=== PATIENT | male | born 1965 | race Caucasian/White ===

== ENCOUNTER 2024-08-16 17:59 | Inpatient (IN) | payer MEDICAID, SELFPAY ==
--- NOTE | 2024-08-16 18:05 | EKG_ITS ---
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
--- NOTE | 2024-08-16 18:05 | XR_ITS ---
Examination: CT brain head without contrast. 2-D sagittal coronal reconstructions Date and time of exam:August 16, 2024 1809 hours INDICATIONS: Stroke alert, onset focal neurologic deficit today CTDI: vol (mGy):53 DLP: (mGycm):1106 Technique: Multiple CT axial sections of the brain have been obtained, 5 mm slice thickness. Contrast has not been administered. 2-D sagittal, coronal reconstructions have been obtained Low dose protocols were performed. One or more of the following dose reduction techniques were used; automated exposure control, adjustment of the mA and/or KV according to patient size, use of iterative reconstruction technique. Findings: No significant ventricular enlargement. Intra-axial or extra-axial hemorrhage density is not seen. No mass effect or midline shift Basal cisterns are not remarkable. Fourth ventricle is midline. Cranial vault intact. Impression: Negative for acute hemorrhage, mass effect or midline shift
--- NOTE | 2024-08-16 18:05 | XR_ITS ---
Examination: CTA carotids with intravenous contrast CTA brain, head with intravenous contrast. 2-D sagittal, coronal reconstructions. 3-D reconstructions. Exam date and time: August 16, 2024 1812 hours INDICATIONS: Stroke alert, onset focal neurologic deficit today CTDI: vol (mGy) 12 DLP: (mGycm) 482 Technique: Multiple CTA axial brain, head carotid images post intravenous contrast injection 100 cc, Isovue-370. 2-D sagittal, coronal reconstructions. 3-D reconstructions, 3-D post processing including vascular maximum intensity projection images. Low dose protocols were performed. One or more of the following dose reduction techniques were used; automated exposure control, adjustment of the mA and/or KV according to patient size, use of iterative reconstruction technique. Findings: No significant common carotid carotid bifurcation or internal carotid artery stenoses Dominant left vertebral artery in the neck with no critical stenoses Intracranial vertebral arteries basilar artery posterior cerebral branches fill with no large vessel occlusions M1 segments middle cerebral arteries and middle cerebral artery trifurcation vessels and anterior cerebral arteries do not demonstrate occlusions or thrombus IMPRESSION: No significant neck arterial stenoses No cerebral large vessel arterial occlusions
--- NOTE | 2024-08-16 18:18 | EDNOTE_ITS ---
Neuro Symptoms Deficit-RME/HPI General Chief Complaint: Neuro Symptoms/Deficit Stated Complaint: FALL, L HIP PAIN. CONFUSION Time Seen by Provider: 08/16/24 18:14 Arrival date/time: 08/16/24 17:59 RME / HPI RME / HPI Narrative: DR MARCIAL MAIN ED EVALUATION: 58 y/o male BIBA c/o altered mental status and left upper extremity weakness onset during transport to ED. Patient initially called EMS due to left hip pain and LLE swelling s/p hip surgery performed by Dr. Iniguez at [facility]. Per EMS patient was GCS 15 when they arrived on scene. En route to hospital, patient was given Tylenol for pain, then suddenly appeared altered with repetitive questioning. Left upper extremity weakness noted on exam. LKWT at approximately 5:40 PM. On arrival patient appears confused and c/o left foot pain. Related Data Previous Rx's ?Medication ?Instructions ?Recorded aspirin 81 mg tablet,delayed 81 mg PO QDAY 1 month #30 tabs 08/20/24 release (Adult Aspirin Regimen) atorvastatin 40 mg tablet 40 mg PO QDAY 1 month #30 ta bs 08/20/24 lisinopril 40 mg tablet 40 mg PO QDAY 1 month #30 ta bs 08/20/24 Allergies Allergy/AdvReac Type Severity Reaction Status Date / Time No Known Drug Allergies Allergy Verified 09/19/23 13:11 Review of Systems Review of Systems Systems Reviewed: All systems reviewed, normal except as documented ED Exam Narrative Physical exam: GENERAL APPEARANCE: alert and oriented x 4, well-developed, well-nourished, no acute distress VITALS: All vitals were reviewed and the pulse ox is 99% on room air, which is normal according to my interpretation. HEENT: Normocephalic, atraumatic; pupils equal, round, reactive to light; EOMI; mucous membranes pink, moist; oropharynx clear NECK: Supple LUNGS: CTABL; no wheezes, no rales, no rhonchi HEART: Regular rate, regular rhythm; normal S1, S2; no murmurs ABDOMEN: non distended; normal BS; soft, no tenderness, no guarding, no rebound; no masses, no organomegaly, no hernia BACK: no CVA tenderness EXTREMITIES: atraumatic; left leg swelling, erythema, edema, edema to left foot, diffused tenderness, left hip nontender NEUROLOGIC: awake; alert and oriented x4; LUE rotator drift, Left hand weakness PSYCHIATRIC: appropriate mood and affect SKIN: warm, dry, normal color; no rashes left hip with well-healed surgical scar with no drainage, no erythema Course Quality Measures Suspected type of Stroke: Unknown at this time Last known well (date): 08/16/24 Last known well (time): 17:39 Tenecteplase given: Reason(s) TPA not given: Unable to determine eligibility not given stroke Orders Category Date Time Status Bedside Blood Glucose NOW Care 08/16/24 18:05 Completed COVID-19 Screening Questionnaire NOW Care 08/16/24 23:47 Completed Tool Repairer Bench NOW Care 08/16/24 18:05 Completed Continuous Pulse Oximetry NOW Care 08/16/24 18:05 Completed EKG (ED ONLY) *Do not use* NOW Care 08/16/24 18:05 Completed In and Out Catheter NEEDED Care 08/16/24 18:05 Completed Insert IV NOW Care 08/16/24 18:05 Completed NIH Stroke Scale now Care 08/16/24 18:05 Completed NPO NOW Care 08/16/24 18:05 Completed Neuro Check Q15MIN Care 08/16/24 18:06 Completed Nurse Swallow Screen x1 Care 08/16/24 18:05 Completed Consult to Neurology / Tele-Neurology Routine Cons 08/16/24 18:[address] angio stroke protocol Stat Exams 08/16/24 18:[address] stroke protocol Stat Exams 08/16/24 18:05 Completed EKG (ED Only) Stat Exams 08/16/24 18:05 Draft US venous doppler LE BI Stat Exams 08/16/24 20:08 Completed XR ankle comp LT min 3V Stat Exams 08/16/24 20:08 Completed XR foot comp LT min 3V Stat Exams 08/16/24 20:08 Completed B-Type Natriuretic Peptide Stat Lab 08/16/24 18:37 Completed Blood Culture (Lab) Stat Lab 08/16/24 20:51 Completed CBC Stat Lab 08/16/24 18:37 Completed Comprehensive Metabolic Panel Stat Lab 08/16/24 18:37 Completed Drug Screen,Urine Stat Lab 08/16/24 19:45 Completed Lactate (Lactic Acid) Stat Lab 08/16/24 20:47 Completed Magnesium Stat Lab 08/16/24 18:37 Completed Partial Thromboplastin Time Stat Lab 08/16/24 18:37 Completed Procalcitonin Stat Lab 08/16/24 20:47 Completed Prothrombin Time with INR Stat Lab 08/16/24 18:37 Completed Troponin I Stat Lab 08/16/24 18:37 Completed Urinalysis Stat Lab 08/16/24 19:45 Completed Urine Culture Stat Lab 08/16/24 19:45 Completed Ondansetron Inj [Zofran Inj] Med 08/16/24 18:05 Discontinued 4 mg IVP Q4HR PRN Sodium Chloride 0.9% 1000 ml [Ns] 1,000 ml Med 08/16/24 20:27 Discontinued IV 999 mls/hr cefTRIAXone/D5w 1gm IV premix [Rocephin/D5w 1gm IV Med 08/16/24 20:23 Discontinued premix] 1 gm in 50 ml IV X1 Oxygen Delivery NOW RT 08/16/24 18:05 Completed Vital Signs Vital signs: Vital Signs Pulse Rate 73 08/16/24 18:40 Respiratory Rate 19 08/16/24 18:40 Blood Pressure 131/86 H 08/16/24 18:40 Pulse Oximetry (%) 99 08/16/24 18:40 Oxygen Delivery Method Room Air 08/16/24 18:40 Neuro Symptoms / Deficit MDM Narrative MDM Narrative:: Scribe Attestation: Malia Carter, am scribing for and in the presence of Dr. Marcial. Provider Notation: Although this document has been carefully reviewed, there may still be some phonetic and other typographical errors. These errors are purely grammatical due to imperfections in the software program and should not be construed in any way to compromise the substance of the patient's medical care during this visit. Patient data External records reviewed:: [facility] previous records (No prior ED records available for review.) and EMS form Clinical information provided by:: patient and EMS Social determinants that could affect healthcare access:: none Patient has the following chronic illnesses:: None reported How is presenting disease/condition affected by chronic disease/condition?: no chronic disease Evaluation data The following diagnostics were reviewed and interpreted by me:: lab results, radiology exam(s) and EKG tracing(s) (1836: EKG manual reading, my interpretation: sinus rhythm, rate: 70 bpm,Mildly diffused flattening at ST segments, P-wave inversions at V1 and V3) Lab and/or radiology exams considered but not ordered:: None Interpretation Summary: RADIOLOGY Head CT: Patient: ALEXANDRA SMITH [facility]. Record#: [id number] Birthdate: 1965 Age/Sex: 58 / M Location: [facility] Attending Dr: Ordering Physician: Carlota Marcial MD Date of Service: 08/16/24 Procedure(s): CT stroke protocol Accession Number(s): [id number] cc: Papito Encarnacion MD; Carlota Marcial MD~ Examination: CT brain head without contrast. 2-D sagittal coronal reconstructions Date and time of exam:August 16, 2024 1809 hours INDICATIONS: Stroke alert, onset focal neurologic deficit today CTDI: vol (mGy):53 DLP: (mGycm):1106 Technique: Multiple CT axial sections of the brain have been obtained, 5 mm slice thickness. Contrast has not been administered. 2-D sagittal, coronal reconstructions have been obtained Low dose protocols were performed. One or more of the following dose reduction techniques were used; automated exposure control, adjustment of the mA and/or KV according to patient size, use of iterative reconstruction technique. Findings: No significant ventricular enlargement. Intra-axial or extra-axial hemorrhage density is not seen. No mass effect or midline shift Basal cisterns are not remarkable. Fourth ventricle is midline. Cranial vault intact. Impression: Negative for acute hemorrhage, mass effect or midline shift Head/Neck CTA: Patient: ALEXANDRA SMITH [facility]. Record#: [id number] Birthdate: 1965 Age/Sex: 58 / M Location: [facility] Attending Dr: Ordering Physician: Carlota Marcial MD Date of Service: 08/16/24 Procedure(s): CT angio stroke protocol Accession Number(s): [id number] cc: Papito Encarnacion MD; Carlota Marcial MD~ Examination: CTA carotids with intravenous contrast CTA brain, head with intravenous contrast. 2-D sagittal, coronal reconstructions. 3-D reconstructions. Exam date and time: August 16, 2024 1812 hours INDICATIONS: Stroke alert, onset focal neurologic deficit today CTDI: vol (mGy) 12 DLP: (mGycm) 482 Technique: Multiple CTA axial brain, head carotid images post intravenous contrast injection 100 cc, Isovue-370. 2-D sagittal, coronal reconstructions. 3-D reconstructions, 3-D post processing including vascular maximum intensity projection images. Low dose protocols were performed. One or more of the following dose reduction techniques were used; automated exposure control, adjustment of the mA and/or KV according to patient size, use of iterative reconstruction technique. Findings: No significant common carotid carotid bifurcation or internal carotid artery stenoses Dominant left vertebral artery in the neck with no critical stenoses Intracranial vertebral arteries basilar artery posterior cerebral branches fill with no large vessel occlusions M1 segments middle cerebral arteries and middle cerebral artery trifurcation vessels and anterior cerebral arteries do not demonstrate occlusions or thrombus IMPRESSION: No significant neck arterial stenoses No cerebral large vessel arterial occlusions Left Foot X-Ray: Patient: ALEXANDRA SMITH. Record#: [id number] Birthdate: 1965 Age/Sex: 58 / M Location: [facility] Attending Dr: Ordering Physician: Carlota Marcial MD Date of Service: 08/16/24 Procedure(s): XR foot comp LT min 3V Accession Number(s): [id number] cc: Papito Encarnacion MD; NO PRIMARY/FAMILY,PHYSICIAN; Carlota Marcial MD~ Examination: Foot, left, 3 views Technique: AP, oblique, lateral views foot, 3 views Date and time of exam: 2036 hours INDICATIONS: Patient fell today with injury to foot, foot pain FINDINGS: No acute fracture No dislocation No foreign body IMPRESSION: No acute fracture Soft tissue swelling dorsum of the foot Dictated By: Papito Encarnacion MD Signed By: <Electronically signed by Papito Encarnacion MD in OV> 08/16/242146 Left Ankle X-Ray: Patient: ALEXANDRA SMITH [facility]. Record#: [id number] Birthdate: 1965 Age/Sex: 58 / M Location: [facility] Attending Dr: Ordering Physician: Carlota Marcial MD Date of Service: 08/16/24 Procedure(s): XR ankle comp LT min 3V Accession Number(s): [id number] cc: Papito Encarnacion MD; NO PRIMARY/FAMILY,PHYSICIAN; Carlota Marcial MD~ EXAMINATION: Ankle, left 3 views . Technique: Ankle AP, oblique, lateral 3 views Date and time of exam: August 09 2040 hours INDICATIONS: Patient fell today with injury to the ankle, ankle pain. FINDINGS: No fracture or dislocation Moderate osteoarthritis tibiotalar joint IMPRESSION: No fracture or dislocation Dictated By: Papito Encarnacion MD Signed By: <Electronically signed by Papito Encarnacion MD in OV> 08/16/242146 Venous Doppler US LE: Patient: ALEXANDRA SMITH [facility]. Record#: [id number] Birthdate: 1965 Age/Sex: 58 / M Location: [facility] Attending Dr: Ordering Physician: Carlota Marcial MD Date of Service: 08/16/24 Procedure(s): US venous doppler LE BI Accession Number(s): [id number] cc: Papito Encarnacion MD; NO PRIMARY/FAMILY,PHYSICIAN; Carlota Marcial MD~ Examination: Venous duplex lower extremity sonogram, bilateral. Date and time of exam: August 16, 2024 1054 hours INDICATIONS: Leg swelling and pain today Technique: Multiple sonographic images of the deep venous system have been obtained. B-mode/2-D grayscale imaging of vascular structures and Doppler spectral analysis (waveforms) and color performed Both legs are examined. Findings: Deep venous systems do not demonstrate abnormal echogenicity. All visualized deep veins exhibit compressibility. All visualized deep veins exhibit augmentation. Impression: Negative for deep vein thrombosis Dictated By: Papito Encarnacion MD Signed By: <Electronically signed by Papito Encarnacion MD in OV> 08/16/24 2356 Medications / Prescriptions Medications or Prescriptions considered but not ordered:: None Medication administrations:: Medication Administration History Discontinued Medications Acetaminophen (Acetaminophen 325 Mg Tablet) 650 mg PO Q6H PRN PRN Reason: Fever >101.5 Stop: 09/16/24 00:29 Acetaminophen (Acetaminophen 325 Mg Tablet) 650 mg PO Q6H PRN PRN Reason: PAIN SCALE 1-3 (mild Stop: 09/16/24 00:29 Last Admin: 08/19/24 17:58 Dose: 650 mg Documented By: Admin: 08/19/24 07:29 Dose: 650 mg Documented By: Admin: 08/18/24 19:25 Dose: 650 mg Documented By: LATRICE Hydrocodone Bitart/Acetaminophen (Hydrocodone/Apap 5/325 Tablet) 1 tab PO Q4HR PRN PRN Reason: PAIN SCALE 4-6 (Moderate Stop: 08/22/24 00:29 Amlodipine Besylate (Amlodipine Besylate 5 Mg Tablet) 5 mg PO QDAY COUNT INCLUDES THE [facility] Stop: 09/17/24 07:29 Last Admin: 08/18/24 08:36 Dose: Not Given Documented By: ZP Non-Admin Reason: Per MD hold dose. x1 order given at 07:44. Admin: 08/18/24 07:44 Dose: 5 mg Documented By: COY Aspirin (Aspirin Ec 81 Mg Tabec) 81 mg PO QDAY COUNT INCLUDES THE [facility] Stop: 09/16/24 08:59 Last Admin: 08/20/24 09:05 Dose: 81 mg Documented By: Admin: 08/19/24 08:23 Dose: 81 mg Documented By: Admin: 08/18/24 08:01 Dose: 81 mg Documented By: Admin: 08/17/24 09:03 Dose: 81 mg Documented By: COY Atorvastatin Calcium (Atorvastatin Calcium 20 Mg Tablet) 40 mg PO HS COUNT INCLUDES THE [facility] Stop: 09/16/24 20:59 Last Admin: 08/19/24 20:42 Dose: 40 mg Documented By: Admin: 08/18/24 20:35 Dose: 40 mg Documented By: Admin: 08/17/24 21:13 Dose: 40 mg Documented By: ANGELICA Doxycycline Hyclate (Doxycycline 100 Mg Tablet) 100 mg PO BID COUNT INCLUDES THE [facility] Stop: 08/24/24 08:59 Last Admin: 08/18/24 08:01 Dose: 100 mg Documented By: Admin: 08/17/24 21:13 Dose: 100 mg Documented By: Admin: 08/17/24 09:03 Dose: 100 mg Documented By: COY Heparin Sodium (Porcine) (Heparin Sod Inj 5000 Unit/Ml Vial) 5,000 unit SC BID ANNIA Stop: 08/31/24 00:44 Last Admin: 08/20/24 09:05 Dose: 5,000 unit Documented By: NURIA Co-signed By: MM Admin: 08/19/24 20:45 Dose: 5,000 unit Documented By: JANE Co-signed By: ARNOLD Admin: 08/19/24 08:24 Dose: 5,000 unit Documented By: COY Co-signed By: aneudy Admin: 08/18/24 20:35 Dose: 5,000 unit Documented By: LATRICE Co-signed By: ARNOLD Admin: 08/18/24 08:01 Dose: 5,000 unit Documented By: COY Co-signed By: Admin: 08/17/24 21:13 Dose: 5,000 unit Documented By: ANGELICA Co-signed By: LATRICE Admin: 08/17/24 09:03 Dose: 5,000 unit Documented By: COY Co-signed By: Admin: 08/17/24 01:17 Dose: 5,000 unit Documented By: MAGGI Co-signed By: TANVI Hydralazine HCl (Hydralazine Inj 20 Mg/Ml Vial) 10 mg IVP X1 ONE Stop: 08/18/24 07:29 Last Admin: 08/18/24 07:43 Dose: 10 mg Documented By: COY Hydralazine HCl (Hydralazine Inj 20 Mg/Ml Vial) 20 mg IVP X1 ONE Stop: 08/18/24 16:04 Last Admin: 08/18/24 16:25 Dose: 20 mg Documented By: DA Hydralazine HCl (Hydralazine Inj 20 Mg/Ml Vial) 20 mg IVP X1 ONE Stop: 08/19/24 11:46 Last Admin: 08/19/24 11:55 Dose: Not Given Documented By: COY Non-Admin Reason: Order cancelled Hydralazine HCl (Hydralazine Inj 20 Mg/Ml Vial) 10 mg IVP X1 ONE Stop: 08/19/24 11:55 Last Admin: 08/19/24 11:56 Dose: 10 mg Documented By: COY Hydralazine HCl (Hydralazine Inj 20 Mg/Ml Vial) 10 mg IVP X1 ONE Stop: 08/19/24 15:27 Last Admin: 08/19/24 15:37 Dose: Not Given Documented By: COY Non-Admin Reason: Don't give per MD. Hydralazine HCl (Hydralazine Inj 20 Mg/Ml Vial) 10 mg IVP X1 PRN PRN Reason: SBP >170 Stop: 09/18/24 15:34 Last Admin: 08/19/24 16:21 Dose: 10 mg Documented By: COY Ceftriaxone Sodium/Dextrose (Rocephin/D5w 1gm Iv Premix) 1 gm in 50 mls @ 100 mls/hr IV X1 ONE Stop: 08/16/24 20:52 Last Infusion: 08/16/24 21:23 Dose: Infused Documented By: Admin: 08/16/24 20:50 Dose: 100 mls/hr Documented By: CVL Sodium Chloride (Ns) 1,000 mls @ 999 mls/hr IV .Q1H1M ONE Stop: 08/16/24 21:27 Last Infusion: 08/16/24 21:42 Dose: Infused Documented By: Admin: 08/16/24 20:34 Dose: 999 mls/hr Documented By: CVL Cefazolin Sodium (Ancef 2gm Ivpb) 2 gm in 100 mls @ 100 mls/hr IV Q8HR ANNIA Stop: 08/24/24 00:44 Last Admin: 08/18/24 05:25 Dose: 100 mls/hr Documented By: Infusion: 08/17/24 22:13 Dose: Infused Documented By: Admin: 08/17/24 21:13 Dose: 100 mls/hr Documented By: Infusion: 08/17/24 14:24 Dose: Infused Documented By: Admin: 08/17/24 13:24 Dose: 100 mls/hr Documented By: Infusion: 08/17/24 07:25 Dose: Infused Documented By: Admin: 08/17/24 06:25 Dose: 100 mls/hr Documented By: Infusion: 08/17/24 02:25 Dose: Infused Documented By: Admin: 08/17/24 01:20 Dose: 100 mls/hr Documented By: CVL Potassium Chloride (Kcl Ivpb) 10 meq in 100 mls @ 100 mls/hr IV Q1H ANNIA Stop: 08/17/24 12:23 Last Admin: 08/17/24 09:15 Dose: Not Given Documented By: ZP Non-Admin Reason: Discontinued Lisinopril (Lisinopril 20 Mg Tablet) 20 mg PO QDAY COUNT INCLUDES THE [facility] Stop: 09/17/24 11:14 Last Admin: 08/18/24 11:08 Dose: 20 mg Documented By: COY Lisinopril (Lisinopril 20 Mg Tablet) 40 mg PO QDAY COUNT INCLUDES THE [facility] Stop: 09/18/24 08:59 Last Admin: 08/20/24 09:05 Dose: 40 mg Documented By: Admin: 08/19/24 08:23 Dose: 40 mg Documented By: COY Lorazepam (Lorazepam 2 Mg/Ml Vial) 0.5 mg IVP X1 ONE Stop: 08/19/24 10:24 Last Admin: 08/19/24 11:07 Dose: Not Given Documented By: ToniP Non-Admin Reason: Patient Refused Morphine Sulfate (Morphine Sulf Inj 10 Mg/Ml Vial) 1 mg IVP Q4H PRN PRN Reason: PAIN SCALE 7-10 (Severe Stop: 08/22/24 00:29 Nifedipine (Nifedipine Xl 30 Mg Tabcr) 30 mg PO QDAY ANNIA Stop: 09/18/24 12:59 Last Admin: 08/20/24 09:08 Dose: 30 mg Documented By: Admin: 08/19/24 12:36 Dose: 30 mg Documented By: COY Nitrofurantoin Macrocrystals (Nitrofurantoin Macro 100 Mg Capsule) 100 mg PO BID ANNIA Stop: 08/26/24 20:59 Last Admin: 08/20/24 09:07 Dose: 100 mg Documented By: Admin: 08/19/24 20:45 Dose: 100 mg Documented By: CLT Ondansetron HCl (Ondansetron Inj 2 Mg/Ml Inj 2 Ml) 4 mg IVP Q4HR PRN PRN Reason: NAUSEA OR VOMITING Stop: 09/15/24 18:04 Ondansetron HCl (Ondansetron Inj 2 Mg/Ml Inj 2 Ml) 4 mg IVP Q6HR PRN; Protocol PRN Reason: NAUSEA OR VOMITING Stop: 09/16/24 06:08 Pantoprazole Sodium (Pantoprazole 40 Mg Tablet) 40 mg PO QDAY ANNIA Stop: 09/16/24 08:59 Last Admin: 08/20/24 09:09 Dose: 40 mg Documented By: Admin: 08/19/24 08:23 Dose: 40 mg Documented By: ToniP Admin: 08/18/24 08:01 Dose: 40 mg Documented By: ToniP Admin: 08/17/24 09:03 Dose: 40 mg Documented By: COY Potassium Chloride (Potassium Chloride 20 Meq Tabcr) 40 meq PO X1 ONE Stop: 08/17/24 09:11 Last Admin: 08/17/24 09:17 Dose: 40 meq Documented By: COY Potassium Chloride (Potassium Chloride 20 Meq Tabcr) 20 meq PO X1 ONE Stop: 08/19/24 07:47 Last Admin: 08/19/24 08:27 Dose: 20 meq Documented By: COY Sennosides (Senna Tablet) 1 tab PO QDAY PRN; Protocol PRN Reason: constipation Stop: 09/16/24 00:29 See above Consultations Consultation(s) initiated? (list below): Yes Consultation #1 (Physician, Specialty, Details): Discussed with teleneurologist for consult. Reviewed the patient?s HPI, PMHx, lab and/or radiology results. Treatment plan was discussed. Time: 18:35 Consultation #2 (Physician, Specialty, Details): Discussed with Dr. Malone for admission. Reviewed the patient?s HPI, PMHx, lab and/or radiology results. Discussed treatment plan. Will consult an admission to the hospitalist. Time: 23:32 Diagnosis Neuro Differential Diagnosis: carpal tunnel syndrome, convulsions, delirium, peripheral neuropathy, cerebrovascular accident, multiple sclerosis, transient cerebral ischemia and other (Sepsis, Cellulitis, Peripheral edema) Most likely diagnosis given after review of the tests above:: Cellulitis, Left-sided weakness, Left foot pain Admission Indicated Admission indicated?: indicated Explain why admission is indicated or not indicated:: Cellulitis, Left-sided weakness, Left foot pain Admission Request Was there a request for admission?: Yes Admission Attestation Admission request attestation: Discussed case with [] from Hospitalist service regarding admission. Discussed patients ED course, exam findings, labs, and radiology results. The Hospitalist [agrees,declines] to accept the patient for admission. Disposition Plan Disposition Plan: Admit Discharge Plan Plan Patient Disposition: Admit Acute Care w/in Hospital Discharge Disposition comment: TELE Patient condition on transfer: Stable Problem List Clinical Impression: Cellulitis, Left-sided weakness, Left foot pain
[2024-08-16 18:40] VITALS: BP 131/86; PULSE 73; RESP 19; O2SAT 99
[2024-08-16 18:41] VITALS: PULSE 78; RESP 96; O2SAT 95; BMI 35.4
[2024-08-16 18:51] LABS: Basophils # (Auto) 0.0 Thou/mm3 (0.0-0.2); Basophils % (Auto) 1 % (0-2.5); Eosinophils # (Auto) 0.1 Thou/mm3 (0.0-0.5); Eosinophils % (Auto) 2 % (0-10); Hematocrit 34.8 % (41.0-53.0); Hemoglobin 11.7 g/dL (13.5-16.0); Immature Granulocytes Auto 0.03 Thou/mm3 (0.00-0.00); Lymphocytes # (Auto) 1.7 Thou/mm3 (1.0-4.8); Lymphocytes % (Auto) 31 % (10-50); Mean Corpuscular HGB Conc 33.6 g/dl (31.0-37.0); Mean Corpuscular Hemoglobin 32.5 pg (25.0-35.0); Mean Corpuscular Volume 97 fL (80-100); Monocytes # (Auto) 0.8 Thou/mm3 (0.0-0.8); Monocytes % (Auto) 15 % (0-12); Neutrophils # (Auto) 2.8 Thou/mm3 (1.8-7.7); Neutrophils % (Auto) 50 % (37-80); Nucleated Red Blood Cell # 0.00 Thou/mm3 (0.00-0.00); Nucleated Red Blood Cell % 0 /100 WBC (0); Platelet Count 237 Thou/mm3 (140-440); RDW Standard Deviation 50.4 fL (35.1-43.9); Red Blood Count 3.60 Miln/mm3 (4.50-5.90); White Blood Count 5.6 Thou/mm3 (3.8-10.6)
[2024-08-16 19:00] LABS: INR 1.1 (0.9-1.3); Partial Thromboplastin Time 25.9 Seconds (22.0-36.0); Prothrombin Time 11.8 Seconds (9.0-12.2)
[2024-08-16 19:04] LABS: B-Type Natriuretic Peptide 113 pg/mL (0-100)
[2024-08-16 19:17] LABS: Alanine Aminotransferase 10 U/L (10-49); Albumin, Serum 3.9 gm/dL (3.5-5.0); Albumin/Globulin Ratio 1.3 (1.2-2.2); Alkaline Phosphatase 105 U/L (46-116); Anion Gap 8 (7-16); Aspartate Amino Transferase 17 U/L (0-34); BUN/Creatinine Ratio 18 Ratio (12-20); Bilirubin,Total 0.3 mg/dL (0.3-1.2); Blood Urea Nitrogen 22 mg/dL (9-23); Calcium 8.7 mg/dL (8.3-10.6); Calcium (Corrected) 8.8 mg/dL (8.5-10.1); Carbon Dioxide 24.9 mMol/L (20.0-31.0); Chloride 112 mMol/L (98-107); Creatinine (Component) 1.2 mg/dL (0.6-1.3); Estimated Creatinine Clearance 81.6 mL/min (>60); Globulin 3.0 gm/dL (2.3-3.5); Glucose 131 mg/dL (74-106); Magnesium 2.2 mg/dL (1.6-2.6); Osmolality,Calculated 294 (275-295); Potassium 3.5 mMol/L (3.4-5.1); Sodium 145 mMol/L (136-145); Total Protein 6.9 gm/dL (5.7-8.2); Troponin I < 0.020 ng/mL (0.0-0.045); eGFR > 60 See Note
--- NOTE | 2024-08-16 19:19 | PC.NURSE ---
HAND OFF REPORT GIVEN TO YASMIN GARBER. PER EMS PATIENT LAST KNOWN WELL TIME WAS ACTUALLY 1740. WHEN PATIENT WAS PICKED UP FROM SCENE HE WAS GCS 15, ON ROUTE TO HOSPITAL PATIENT BECAME ALTERED AND BECAME [facility]CS 14. PATIENT HAD LEFT ARM DRIFT. PATIENT VITALS ARE STABLE. PATIENT PASSED NURSE SWALLOW EVAL. DR. MONROY WAS MADE AWARE OF EMS REPORT AND PATIENT HISTORY. MADE YASMIN GARBER AWARE OF EMS REPORT AND THAT THERE HAS NOT BEEN A CALL BACK FROM DR. MEREDITH TELE-NEUROLOGIST.
--- NOTE | 2024-08-16 19:33 | PC.NURSE ---
pt wanting to get cleaned up. pt was dry and clean but offered wipes to wipe himself down. water given to pt per RN ok.
[2024-08-16 20:00] VITALS: BP 149/92; PULSE 69; RESP 18; TEMP 37.2; O2SAT 99
--- NOTE | 2024-08-16 20:08 | XR_ITS ---
EXAMINATION: Ankle, left 3 views . Technique: Ankle AP, oblique, lateral 3 views Date and time of exam: August 090 hours INDICATIONS: Patient fell today with injury to the ankle, ankle pain. FINDINGS: No fracture or dislocation Moderate osteoarthritis tibiotalar joint IMPRESSION: No fracture or dislocation
--- NOTE | 2024-08-16 20:08 | XR_ITS ---
Examination: Foot, left, 3 views Technique: AP, oblique, lateral views foot, 3 views Date and time of exam: 2036 INDICATIONS: Patient fell today with injury to foot, foot pain FINDINGS: No acute fracture No dislocation No foreign body IMPRESSION: No acute fracture Soft tissue swelling dorsum of the foot
--- NOTE | 2024-08-16 20:08 | XR_ITS ---
Examination: Venous duplex lower extremity sonogram, bilateral. Date and time of exam: August 16, 2024 1054 hours INDICATIONS: Leg swelling and pain today Technique: Multiple sonographic images of the deep venous system have been obtained. B-mode/2-D grayscale imaging of vascular structures and Doppler spectral analysis (waveforms) and color performed Both legs are examined. Findings: Deep venous systems do not demonstrate abnormal echogenicity. All visualized deep veins exhibit compressibility. All visualized deep veins exhibit augmentation. Impression: Negative for deep vein thrombosis
[2024-08-16 20:10] LABS: Collection Type, Urine Catheter; Squamous Epithelial Cell,Urine 0 /hpf (0-5)
[2024-08-16 20:18] LABS: Bilirubin,Urine Negative (Negative); Blood,Urine Negative (Negative); Clarity,Urine Clear (Clear/Hazy); Color,Urine Yellow (Lt Yel-Yel); Glucose, Urine Negative (Negative); Ketones,Urine Negative (Negative); Leukocyte Esterase,Urine Negative (Negative); Nitrite,Urine Negative (Negative); PH,Urine 6.0 (5.0-7.0); Protein,Urine 1+ (Neg - Trace); RBC,Urine 3 /hpf (0-3); Specific Gravity,Urine 1.047 (1.001-1.035); Urobilinogen,Urine Negative mg/dL (0.0-1.0); WBC,Urine 1 /hpf (0-5)
[2024-08-16 20:29] LABS: Amphetamine/Methamp Scrn,U Negative (Negative); Barbiturate Screen,Urine Negative (Negative); Benzodiazepines Screen,Urine Negative (Negative); Benzoylecgonine Screen, Ur Negative (Negative); Fentanyl Screen,Urine Negative (Negative); Opiate Screen,Urine Negative (Negative); THC Screen,Urine Negative (Negative)
[2024-08-16] MEDS: SODIUM CHLORIDE 0.9% 1000 ML 1,000 ML 999 ML IV (20:34)
[2024-08-16] MEDS: cefTRIAXone/D5w 1gm IV premix 1 GM/50 ML BAG IV (20:50)
[2024-08-16 20:56] LABS: Lactate (Lactic Acid) 1.7 mMol/L (0.4-2.0)
[2024-08-16 21:23] LABS: Procalcitonin 0.09 ng/ml (0.0-0.49)
[2024-08-16 23:39] VITALS: BP 165/87; PULSE 66; RESP 18; TEMP 37.2; O2SAT 97
[2024-08-17] VITALS (11 sets, daily range): BP systolic 156–187; BP diastolic 80–97; PULSE 54–81; RESP 10–97; TEMP 36.2–36.9; O2SAT 97–99
--- NOTE | 2024-08-17 00:49 | ESHP_ITS ---
Documentation for date of: 08/17/24 HPI History of Present Illness Chief complaint: Left foot pain and swelling History of present illness: This patient is a 58-year-old male with past medical history of hypertension, hypercholesterolemia presented to the ED on 08/16/2024 with chief complaint of altered mental status and left upper extremity weakness. Per ED physician, patient had altered mental status and left upper extremity weakness onset during transport to ED. he initially called EMS due to left foot pain and LLE swelling s/p hip surgery performed by Dr. Iniguez at [facility]. He had a GCS of 15 on arrival to the scene. En route to hospital, patient was given Tylenol for pain, then suddenly appeared altered with repetitive questioning. Left upper extremity weakness and pronator drift noted on exam. Patient's last well-known time was at 5:40 PM. He was found confused with left foot pain on arrival. However after few minutes patient is back to his baseline with GCS 15. He reported that he had Left hip pain and swelling that started a week ago. He noticed that he started having pain and swelling which has been getting worse and from last 1 week. Pain is rated as 9 on 10 mainly in the left foot. Patient lives with his mom. He denied any fever chills, shortness of breath, chest pain, dysuria or any other complaint. Stroke workup was initiated by the ED physician including head CT and head and neck CTA which showed no acute changes. Patient did not had any episodes of jerky movements or seizures. Patient does not have purulent discharge or redness but has significant swelling and pain in his left foot. Initial plan was to discharge the patient however due to change in his mentation and possible concern for TIA/stroke patient will be admitted for further workup. In the ED, patient was hypertensive blood pressure 165/87, heart rate 66, afebrile. He was saturating well on room air. Labs were significant for normocytic anemia hemoglobin 11.7. White count stable. INR 1.1. Electrolytes showed sodium 145, potassium 3.5, chloride 112. BUN 22 and creatinine 1.2. Blood glucose 131. Lactic acid 1.7. Magnesium 2.1. BNP 113. Procalcitonin 0.09. Urinalysis showed specific gravity 1.047, proteinuria. U tox was negative. Venous Doppler was negative. Foot x-ray showed mild swelling and soft tissue. Ankle x-ray was negative for fracture. EKG showed sinus rhythm with QTc 483. Head CT was negative for acute changes. Head and neck CT showed no significant neck arterial stenosis. PMH: As above PSH: Left hip replacement a month ago, carpal tunnel release, ankle ligament surgery SH: Former smoker quit smoking a month ago. Used to smoke 1 to 2 cigarettes once or twice a week. Drinks alcohol socially. Last drink on Monday. Quit methamphetamine in January 2024. Allergies: NKDA Home medications: Lipitor Patient is admitted for further workup and management of possible TIA/stroke and left foot cellulitis. Review of Systems Review of Systems Systems Reviewed: All systems reviewed, normal except as documented Past Medical History Past Medical History CARDIAC: Positive Hypercholesterolemia and Hypertension Exam Vital Signs Temp Pulse Resp BP Pulse Ox O2 Del Method 99.0 F 66 18 165/87 H 97 Room Air 08/16/24 23:39 08/16/24 23:39 08/16/24 23:39 08/16/24 23:39 08/16/24 23:39 08/16/24 23:39 Narrative Exam GENERAL APPEARANCE: AxOx4, generally well-appearing male in no acute distress. HEENT: NC, AT. MMM. EOMI, clear conjunctiva, oropharynx clear. NECK: Supple without lymphadenopathy. No stiffness or restricted ROM. HEART: Regular rate and regular rhythm, normal S1/S2, no m/r/g LUNGS: CTAB, moving air well. No crackles or wheezes are heard. ABDOMEN: Soft, nontender, nondistended with good bowel sounds heard. BACK: No CVAT, no obvious deformity. EXTREMITIES: Left foot swelling without any purulent discharge or erythema NEUROLOGICAL: Grossly nonfocal. Alert and oriented, moving all 4 extremities. CN not formally tested but appear grossly intact. Skin: Warm and dry without any rash. Psych: appropriate mood and affect Results: Labs 08/16/24 18:37 08/16/24 18:37 Labs: Short CBC 08/16/24 Range/Units 18:37 WBC 5.6 (3.8-10.6) Thou/mm3 Hgb 11.7 L (13.5-16.0) g/dL Hct 34.8 L (41.0-53.0) % Plt Count 237 (140-440) Thou/mm3 BMP 08/16/24 18:37 Sodium 145 Potassium 3.5 Chloride 112 H Carbon Dioxide 24.9 BUN 22 Creatinine 1.2 Glucose 131 H Calcium 8.7 Cardiac Enzymes 08/16/24 Range/Units 18:37 Troponin I < 0.020 (0.0-0.045) ng/mL Liver Function 08/16/24 Range/Units 18:37 Total Bilirubin 0.3 (0.3-1.2) mg/dL AST 17 (0-34) U/L ALT 10 (10-49) U/L Alkaline Phosphatase 105 (46-116) U/L Albumin 3.9 (3.5-5.0) gm/dL Urine 08/16/24 Range/Units 19:45 Urine Color Yellow (Lt Yel-Yel) Urine Clarity Clear (Clear/Hazy) Urine pH 6.0 (5.0-7.0) Ur Specific [place] 1.047 H (1.001-1.035) Urine Protein 1+ A (Neg - Trace) Urine Glucose (UA) Negative (Negative) Quality Measures Quality Measures VTE prophylaxis (Heparin subcut) and stroke Suspected type of Stroke: Unknown at this time Last known well (date): 08/16/24 Last known well (time): 17:39 Tenecteplase given: Reason(s) Tenecteplase not given: Outside the time window not given Rehab services: PT evaluation ordered VTE Prophylaxis: pharmaceutical Antithrombotic by day 2:: not indicated (describe) Statin ordered: <75 y/o high intensity dose Anticoagulation ordered for A-fib or flutter (current or hx): not indicated Medications Home Medications and Allergies Home Medications ?Medication ?Instructions ?Recorded ?Confirmed ?Type No Known Home Medications 09/19/2307/22 History Allergies Allergy/AdvReac Type Severity Reaction Status Date / Time No Known Drug Allergies Allergy Verified 09/19/23 13:11 Visit Medications Acetaminophen (Acetaminophen 325 Mg Tablet) 650 mg PO Q6H PRN PRN Reason: Fever >101.5 Stop: 09/16/24 00:29 Acetaminophen (Acetaminophen 325 Mg Tablet) 650 mg PO Q6H PRN PRN Reason: PAIN SCALE 1-3 (mild Stop: 09/16/24 00:29 Hydrocodone Bitart/Acetaminophen (Hydrocodone/Apap 5/325 Tablet) 1 tab PO Q4HR PRN PRN Reason: PAIN SCALE 4-6 (Moderate Stop: 08/22/24 00:29 Aspirin (Aspirin Ec 81 Mg Tabec) 81 mg PO QDAY ANNIA Stop: 09/16/24 08:59 Doxycycline Hyclate (Doxycycline 100 Mg Tablet) 100 mg PO BID [facility] Stop: 08/24/24 08:59 Heparin Sodium (Porcine) (Heparin Sod Inj 5000 Unit/Ml Vial) 5,000 unit SC BID [facility] Stop: 08/31/24 00:44 Cefazolin Sodium (Ancef 2gm Ivpb) 2 gm in 100 mls @ 100 mls/hr IV Q8HR ANNIA Stop: 08/24/24 00:44 Morphine Sulfate (Morphine Sulf Inj 10 Mg/Ml Vial) 1 mg IVP Q4H PRN PRN Reason: PAIN SCALE 7-10 (Severe Stop: 08/22/24 00:29 Ondansetron HCl (Ondansetron Inj 2 Mg/Ml Inj 2 Ml) 4 mg IVP Q4HR PRN PRN Reason: NAUSEA OR VOMITING Stop: 09/15/24 18:04 Ondansetron HCl (Ondansetron Inj 2 Mg/Ml Inj 2 Ml) 4 mg IVP Q6H PRN; Protocol PRN Reason: NAUSEA OR VOMITING Stop: 09/16/24 00:29 Pantoprazole Sodium (Pantoprazole 40 Mg Tablet) 40 mg PO QDAY ANNIA Stop: 09/16/24 08:59 Sennosides (Senna Tablet) 1 tab PO QDAY PRN; Protocol PRN Reason: constipation Stop: 09/16/24 00:29 Discontinued Medications Ceftriaxone Sodium/Dextrose (Rocephin/D5w 1gm Iv Premix) 1 gm in 50 mls @ 100 mls/hr IV X1 ONE Stop: 08/16/24 20:52 Last Infusion: 08/16/24 21:23 Dose: Infused Sodium Chloride (Ns) 1,000 mls @ 999 mls/hr IV .Q1H1M ONE Stop: 08/16/24 21:27 Last Infusion: 08/16/24 21:42 Dose: Infused Assessment & Plan Plan This patient is a 58-year-old male with past medical history of hypertension, hypercholesterolemia presented to the ED on 08/16/2024 with chief complaint of altered mental status and left upper extremity weakness. Additionally patient also have left hip pain and swelling. Last well-known time at 5:40 PM. Patient is back to baseline. Admitted for workup of stroke and left foot cellulitis. #Possible TIA versus stroke -Per ED physician, patient had altered mental status and left upper extremity weakness during transport to ED. ? Patient called EMS due to left foot pain and LLE swelling s/p hip surgery performed by Dr. Iniguez at [facility]. He had a GCS of 15 on arrival to the scene. ? En route to hospital, patient was given Tylenol for pain, then suddenly appeared altered with repetitive questioning. Left upper extremity weakness and pronator drift noted on exam. ? Patient's last well-known time was at 5:40 PM. He was found confused with left foot pain on arrival. However after few minutes he was seen back to his baseline with GCS 15. ?In the ED, patient was hypertensive blood pressure 165/87, heart rate 66, afebrile. He was saturating well on room air. ? LAbs were significant for normocytic anemia hemoglobin 11.7. White count stable. INR 1.1. Electrolytes showed sodium 145, potassium 3.5, chloride 112. BUN 22 and creatinine 1.2. Blood glucose 131. Lactic acid 1.7. Magnesium 2.1. BNP 113. Procalcitonin 0.09. ?Urinalysis showed specific gravity 1.047, proteinuria. U tox was negative. ?EKG showed sinus rhythm with QTc 483. Head CT was negative for acute changes. Head and neck CT showed no significant neck arterial stenosis. Plan: -Admit to Telemetry -Not a candidate for tPA given resolution of symptoms -Aspirin and statin therapy -Allow permissive hypertension for the first 24 hours -Neuro Checks Q4 -No difficulty swallowing as patient was drinking water -DVT Prophylaxis with Heparin 5000 U every 12h -Head of bed 30 degrees -Tylenol PRN to avoid hyperthermia - Aspirin and statin therapy -Neurology Dr. Lopez consulted, appreciate recommendations -Ordered echo with bubble study -A1C ordered -Physical therapy evaluation ?Patient had a recent history of left hip replacement a month ago at [facility] and will need confirmation for MRI compatibility of metallic melissa inside his left hip to proceed with MRI for evaluation of stroke #Left foot pain and swelling possible cellulitis, nonpurulent ?He reported that he had Left hip pain and swelling that started a week ago. He noticed that he started having pain and swelling which has been getting worse and from last 1 week. Pain is rated as 9 on 10 mainly in the left foot. ?He denied any fever chills, shortness of breath, chest pain, dysuria or any other complaint.Patient does not have purulent discharge or redness but has significant swelling and pain in his left foot. -Venous Doppler was negative. Foot x-ray showed mild swelling and soft tissue. Ankle x-ray was negative for fracture. Procalcitonin 0.09. Plan: ?Started IV cefazolin 2 g every 8 hourly for gram-positive and MSSA and doxycycline 100 mg PO BID to cover MRSA ?Follow-up on blood culture and MRSA screen ?Pain management as needed #History of hypertension #History of hypercholesteremia ? Patient only takes lisinopril 20 mg and Lipitor Plan ? Continue atorvastatin 40 mg at bedtime ? Holding antihypertensive to allow permissive hypertension #Hyperglycemia ? Blood glucose 126 Plan: ? Follow-up with A1c #Former smoker #Former methamphetamine use ? Patient quit smoking cigarettes a month ago. Used to smoke 1 to 2 cigarettes once a week. Patient quit methamphetamine in January 2024 Health maintenance Diet: Regular GI prophylaxis: Protonix 40 mg p.o. daily DVT prophylaxis: Heparin subcut twice daily CODE STATUS: Full code Disposition:Patient is admitted for further workup and management of possible TIA/stroke and left foot cellulitis. Patient was seen and discussed with attending physician, Dr.Macaranas Dr. Faisal MD, PGY 2 Attending Provider Attestation/Addendum 58-year-old male patient with hypertension, hyperlipidemia, hyperglycemia, former smoker methamphetamine user presents with altered mental status possible TIA. During his evaluation the patient was also noted to have left foot pain and swelling. There is no purulence reported. There is no evidence of head trauma. No report of falls no syncope. The patient is afebrile. He has no neck stiffness. He has no skin rash. Patient has regular cardiac rhythm. He will be admitted for further evaluation and management. I discussed with and supervised the resident physician who took care of this patient. I agree with the assessment and plan as above.
[2024-08-17] MEDS: HEPARIN SOD INJ 5000 UNIT/ML VIAL SC ×3 (01:17→21:13)
[2024-08-17] MEDS: ceFAZolin/D5W 2 GM IV 2 GM/100 ML BAG IV ×4 (01:20→21:13)
--- NOTE | 2024-08-17 05:05 | PC.NURSE ---
REPORT GIVEN TO CRISTINA HOFFMAN AT ICU.
[2024-08-17] MEDS: ASPIRIN EC 81 MG TABEC PO (09:03)
[2024-08-17] MEDS: DOXYCYCLINE 100 MG TABLET PO ×2 (09:03→21:13)
[2024-08-17] MEDS: PANTOPRAZOLE 40 MG TABLET PO (09:03)
--- NOTE | 2024-08-17 14:59 | ESPR_ITS ---
Documentation for date of: 08/17/24 Subjective Subjective Interval history: Patient examined at bedside. Has no major complaints. States that his weakness has resolved and is currently alert and oriented x 3. Vitals are stable. Stroke workup including CT head and CTA negative for acute hemorrhage or any LVO. Pending in-house neurology recommendations. At this time all symptoms have resolved. Mild tenderness in left lower extremity, no erythema, DVT negative. Continuing antibiotics for cellulitis and blood cultures are pending. Will consult social media sr strategy manager as patient is homeless. Waiting for [facility] medical records to confirm that hip hardware is compatible with our MRI machines. Echo with bubble study pending, PT pending. Continue aspirin and atorvastatin. Exam Vital Signs Temp Pulse Resp BP Pulse Ox O2 Del Method 97.5 F 59 L 15 187/85 H 99 Room Air 08/17/24 12:00 08/17/24 12:00 08/17/24 12:08/17/24 12:08/17/24 12:00 08/17/24 04:08 Narrative Exam General: Middle age male. No acute distress, cooperative HEENT: NCAT, No JVD noted. Mucosa moist. Pupils are equal and reactive to light bilaterally Cardiovascular: Normal S1 and S2. Regular rate and rhythm. Respiratory: Lungs are clear to auscultation bilaterally. No wheezing or crackles heard. Abdomen: Soft, nontender, not distended, normal bowel sounds. Skin: Warm to touch, dry, neglected foot care with cracks and dirt. Musculoskeletal: No gross injuries. Able to move all 4 extremities. No pitting edema, no erythema. Neuro: Alert and oriented x3. No focal neuro deficits. Psych: Normal affect and mood Objective Labs 08/18/24 04:25 08/18/24 04:25 Labs: Laboratory Results - last 24 hr 08/16/24 08/16/24 08/16/24 18:37 19:45 20:47 WBC 5.6 RBC 3.60 L Hgb 11.7 L Hct 34.8 L MCV 97 MCH 32.5 MCHC 33.6 RDW Std Deviation 50.4 H Plt Count 237 Neut % (Auto) 50 Lymph % (Auto) 31 Luna % (Auto) 15 H Eos % (Auto) 2 Baso % (Auto) 1 Neut # (Auto) 2.8 Lymph # (Auto) 1.7 Luna # (Auto) 0.8 Eos # (Auto) 0.1 Baso # (Auto) 0.0 Immature Gran # (Auto) 0.03 H Absolute Nucleated RBC 0.00 Immature Gran % 1 H Nucleated RBC % 0 PT 11.8 INR 1.1 APTT 25.9 Sodium 145 Potassium 3.5 Chloride 112 H Carbon Dioxide 24.9 Anion Gap 8 BUN 22 Creatinine 1.2 Estim Creat Clear Calc 81.6 eGFR > 60 BUN/Creatinine Ratio 18 Glucose 131 H Calculated Osmolality 294 Lactic Acid 1.7 Calcium 8.7 Corrected Calcium 8.8 Magnesium 2.2 Total Bilirubin 0.3 AST 17 ALT 10 Alkaline Phosphatase 105 Troponin I < 0.020 B-Natriuretic Peptide 113 H Total Protein 6.9 Albumin 3.9 Globulin 3.0 Albumin/Globulin Ratio 1.3 Procalcitonin 0.09 Ur Collection Type Catheter Urine Color Yellow Urine Clarity Clear Urine pH 6.0 Ur Specific [place] 1.047 H Urine Protein 1+ A Urine Glucose (UA) Negative Urine Ketones Negative Urine Blood Negative Urine Nitrite Negative Urine Bilirubin Negative Urine Urobilinogen (Auto) Negative Ur Leukocyte Esterase Negative Urine RBC 3 Urine WBC 1 Ur Squamous Epith Cells 0 Urine Bacteria None Urine Opiates Screen Negative Urine Fentanyl Screen Negative Ur Barbiturates Screen Negative U Amphetamin/Meth Scrn Negative U Benzodiazepines Scrn Negative U Cocaine Metab Screen Negative U Marijuana (THC) Screen Negative Quality Measures Quality Measures VTE prophylaxis (Heparin subcut) and stroke Suspected type of Stroke: Unknown at this time Last known well (date): 08/16/24 Last known well (time): 17:39 Tenecteplase given: Reason(s) Tenecteplase not given: Outside the time window not given Rehab services: PT evaluation ordered and Speech Language Pathology eval ordered VTE Prophylaxis: pharmaceutical Antithrombotic by day 2:: not indicated (describe) Statin ordered: >75 y/o moderate or high intensity dose Anticoagulation ordered for A-fib or flutter (current or hx): not indicated Assessment & Plan Assessment Current Active Medications: Generic Name Dose Route Start Last Admin Trade Name Freq PRN Reason Stop Dose Admin Acetaminophen 650 mg 08/17/24 00:30 Acetaminophen 325 Mg Tablet PO 09/16/24 00:29 Q6H PRN Fever >101.5 Acetaminophen 650 mg 08/17/24 00:30 Acetaminophen 325 Mg Tablet PO 09/16/24 00:29 Q6H PRN PAIN SCALE 1-3 (mild Hydrocodone Bitart/Acetaminophen 1 tab 08/17/24 00:30 Hydrocodone/Apap 5/325 Tablet PO 08/22/24 00:29 Q4HR PRN PAIN SCALE 4-6 (Moderate Aspirin 81 mg 08/17/24 09:00 08/17/24 09:03 Aspirin Ec 81 Mg Tabec PO 09/16/24 08:59 81 mg QDAY ANNIA Administration Atorvastatin Calcium 40 mg 08/17/24 21:00 Atorvastatin Calcium 20 Mg Tablet PO 09/16/24 20:59 HS ANNIA Doxycycline Hyclate 100 mg 08/17/24 09:00 08/17/24 09:03 Doxycycline 100 Mg Tablet PO 08/24/24 08:59 100 mg BID ANNIA Administration Heparin Sodium (Porcine) 5,000 unit 08/17/24 00:45 08/17/24 09:03 Heparin Sod Inj 5000 Unit/Ml Vial SC 08/31/24 00:44 5,000 unit BID ANNIA Administration Cefazolin Sodium 2 gm in 100 mls @ 100 mls/hr 08/17/24 00:45 08/17/24 13:24 Ancef 2gm Ivpb IV 08/24/24 00:44 100 mls/hr Q8HR ANNIA Administration Ondansetron HCl 4 mg 08/17/24 06:09 Ondansetron Inj 2 Mg/Ml Inj 2 Ml IVP 09/16/24 06:08 Q6HR PRN NAUSEA OR VOMITING Protocol Pantoprazole Sodium 40 mg 08/17/24 09:00 08/17/24 09:03 Pantoprazole 40 Mg Tablet PO 09/16/24 08:59 40 mg QDAY ANNIA Administration Sennosides 1 tab 08/17/24 00:30 Senna Tablet PO 09/16/24 00:29 QDAY PRN constipation Protocol Plan This patient is a 58-year-old male with past medical history of hypertension, hypercholesterolemia presented to the ED on 08/16/2024 with chief complaint of altered mental status and left upper extremity weakness. Additionally patient also have left hip pain and swelling. Last well-known time at 5:40 PM. Patient is back to baseline. Admitted for workup of stroke and left foot cellulitis. #Acute encephalopathy Likely due to TIA vs infection from cellulitis. No electrolyte abnormalities, no hypoglycemia, ruling out heatstroke due to normal body temperature #TIA Per ED physician, patient had altered mental status and left upper extremity weakness during transport to ED. Has CC of LLE swelling/foot pain after hip surgery at [facility] by Dr. Iniguez. Suddenly developed weakness and was confused. LWK 5:40 PM yesterday; was back to his baseline few minutes later. BP 165/87, heart rate 66, afebrile in ED. CMC, CMP unremarkable. Urinalysis showed specific gravity 1.047, proteinuria. U tox was negative. EKG showed sinus rhythm with QTc 483. Head CT was negative for acute changes. Head and neck CT showed no significant neck arterial stenosis. Plan: -Neurology Dr. Lopez consulted, appreciate recommendations -Not a candidate for tPA given resolution of symptoms -Aspirin and statin therapy -Allow permissive hypertension for the first 24 hours -Neuro Checks Q4 -passed swallow eval -echo with bubble study pending -A1C pending -Physical therapy penidng ?Patient had a recent history of left hip replacement a month ago at [facility] and will need confirmation for MRI compatibility of metallic melissa inside his left hip to proceed with MRI for evaluation of stroke (no one at [facility] is able to send records until Monday) #Cellulitis, nonpurulent He reported that he had Left hip pain and swelling that started a week ago. Neglected foot care with cracks and dirt. Venous Doppler was negative. Foot x-ray showed mild swelling and soft tissue. Ankle x-ray was negative for fracture. ?IV cefazolin 2 g TID for gram-positive and MSSA -doxycycline 100 mg PO BID to cover MRSA ?Follow-up on blood culture and MRSA screen ?Pain management as needed #Hypertension #Hypercholesteremia Patient only takes lisinopril 20 mg and Lipitor ? Continue atorvastatin 40 mg at bedtime ? Holding antihypertensive to allow permissive hypertension #Former smoker #Former methamphetamine use #Homelessness ? Patient quit smoking cigarettes a month ago. Used to smoke 1 to 2 cigarettes once a week. Patient quit methamphetamine in January 2024 -consult social media sr strategy manager Health maintenance Diet: Regular GI prophylaxis: Protonix 40 mg p.o. daily DVT prophylaxis: Heparin subcut CODE STATUS: Full code Disposition: TIA/stroke and left foot cellulitis. The patient's management plan was discussed with my attending physician Dr. Pittman. Danay Puente, PGY-1 Attending Provider Attestation/Addendum I have examined the patient, reviewed labs and imaging findings, discussed the case with the resident(s), and reviewed entered orders. I agree with the plan of care as outlined in this note, with these additional summaries/recommendations: Patient seen at bedside. Acute encephalopathy and left upper extremity weakness present prior to arrival to the ED has resolved. Possible patient had TIA although unlikely. Patient is pending MRI brain, echo with bubble, PT, speech therapy, and inpatient neurology evaluation. Continue aspirin and atorvastatin 40 mg p.o. daily. Patient was not a tPA candidate on admission as symptoms had resolved prior to arrival in the emergency department. Patient reports he had recent left hip replacement surgery at [facility] approximately 1 month ago with hardware placed. Follow-up with radiology to see if compatible and if not we will likely have to repeat head CT. Patient reports his left foot pain and swelling has improved since admission. He reports this developed after surgery and was seen by orthopedic surgeon who reported it will take time for the swelling to decrease. Low suspicion for superimposed cellulitis at this time although we will continue antibiotics until cultures are available. Continue to control vascular risk factors. Consult shall social media sr strategy manager for homelessness. Patient updated on the plan and in agreement. All questions answered to satisfaction. Dr. Zain MD
--- NOTE | 2024-08-17 16:26 | PC.SS ---
Per rounding meeting, Continuing antibiotics for cellulitis and blood cultures are pending. There is no pending d/c date at this time.
[2024-08-17] MEDS: ATORVASTATIN CALCIUM 20 MG TABLET 40 MG PO (21:13)
[2024-08-18] VITALS (18 sets, daily range): BP systolic 144–189; BP diastolic 66–102; PULSE 54–72; RESP 13–97; TEMP 36.6–37.4; O2SAT 97–99; BMI 37.3
[2024-08-18] MEDS: ceFAZolin/D5W 2 GM IV 2 GM/100 ML BAG IV (05:25)
[2024-08-18 05:50] LABS: Basophils # (Auto) 0.0 Thou/mm3 (0.0-0.2); Basophils % (Auto) 1 % (0-2.5); Eosinophils # (Auto) 0.2 Thou/mm3 (0.0-0.5); Eosinophils % (Auto) 4 % (0-10); Hematocrit 33.1 % (41.0-53.0); Hemoglobin 11.2 g/dL (13.5-16.0); Immature Granulocytes Auto 0.01 Thou/mm3 (0.00-0.00); Lymphocytes # (Auto) 1.2 Thou/mm3 (1.0-4.8); Lymphocytes % (Auto) 28 % (10-50); Mean Corpuscular HGB Conc 33.8 g/dl (31.0-37.0); Mean Corpuscular Hemoglobin 32.6 pg (25.0-35.0); Mean Corpuscular Volume 96 fL (80-100); Monocytes # (Auto) 0.7 Thou/mm3 (0.0-0.8); Monocytes % (Auto) 17 % (0-12); Neutrophils # (Auto) 2.2 Thou/mm3 (1.8-7.7); Neutrophils % (Auto) 50 % (37-80); Nucleated Red Blood Cell # 0.00 Thou/mm3 (0.00-0.00); Nucleated Red Blood Cell % 0 /100 WBC (0); Platelet Count 229 Thou/mm3 (140-440); RDW Standard Deviation 50.0 fL (35.1-43.9); Red Blood Count 3.44 Miln/mm3 (4.50-5.90); White Blood Count 4.4 Thou/mm3 (3.8-10.6)
[2024-08-18 06:19] LABS: INR 1.0 (0.9-1.3); Partial Thromboplastin Time 26.6 Seconds (22.0-36.0); Prothrombin Time 11.4 Seconds (9.0-12.2)
[2024-08-18 06:56] LABS: Alanine Aminotransferase 8 U/L (10-49); Albumin, Serum 3.6 gm/dL (3.5-5.0); Albumin/Globulin Ratio 1.2 (1.2-2.2); Alkaline Phosphatase 94 U/L (46-116); Anion Gap 7 (7-16); Aspartate Amino Transferase 15 U/L (0-34); BUN/Creatinine Ratio 12 Ratio (12-20); Bilirubin,Total 0.4 mg/dL (0.3-1.2); Blood Urea Nitrogen 11 mg/dL (9-23); Calcium 8.6 mg/dL (8.3-10.6); Calcium (Corrected) 8.9 mg/dL (8.5-10.1); Carbon Dioxide 27.1 mMol/L (20.0-31.0); Chloride 108 mMol/L (98-107); Creatinine (Component) 0.9 mg/dL (0.6-1.3); Estimated Creatinine Clearance 111.7 mL/min (>60); Globulin 2.9 gm/dL (2.3-3.5); Glucose 96 mg/dL (74-106); Magnesium 2.1 mg/dL (1.6-2.6); Osmolality,Calculated 282 (275-295); Phosphorous 2.4 mg/dL (2.4-5.1); Potassium 4.1 mMol/L (3.4-5.1); Sodium 142 mMol/L (136-145); Total Protein 6.5 gm/dL (5.7-8.2); eGFR > 60 See Note
[2024-08-18] MEDS: hydrALAZINE INJ 20 MG/ML VIAL 10 MG IVP (07:43)
[2024-08-18] MEDS: ASPIRIN EC 81 MG TABEC PO (08:01)
[2024-08-18] MEDS: DOXYCYCLINE 100 MG TABLET PO (08:01)
[2024-08-18] MEDS: PANTOPRAZOLE 40 MG TABLET PO (08:01)
[2024-08-18] MEDS: HEPARIN SOD INJ 5000 UNIT/ML VIAL SC ×2 (08:01→20:35)
--- NOTE | 2024-08-18 09:32 | EKG_ITS ---
[facility] Test Date: 2024-08-18 Pat Name: ALEXANDRA SMITH [facility] Gender[facility] Male [employer] Former: BRANDO : 1965 Requested By: Clair Allen Order Number: [id number] Reading MD: Clair Allen Measurements Intervals [place] Rate: 59 P: 33 PA: 175 QRS: 31 QRSD: 101 T: 30 QT: 482 QTc: 478 Interpretive Statements SINUS BRADYCARDIA PROLONGED QT INTERVAL Compared to ECG 08/16/2024 18:36:02 Sinus rhythm no longer present /store/S0/[id number]
--- NOTE | 2024-08-18 10:08 | PC.SS ---
Addendum entered by Emely Oliveira 08/18/24 15:20: ASW attempted to complete an initial with the pt, but pt was asleep. ASW attempted to contact Next of Kin, Eryn Villalpando, and was only able to leave a voice message. Original Note: Per rounding meeting, TIA workup needed, ECHO pending, MRI pending but the wait is the medical records from [facility], which has been requested per attending. At this time there is no d/c date.
[2024-08-18 11:15] LABS: Troponin I < 0.020 ng/mL (0.0-0.045)
--- NOTE | 2024-08-18 16:07 | PD.RESPRO ---
Documentation for date of: 08/18/24 Subjective Subjective Interval history: Patient examined at bedside, no events overnight. This morning he is complaining of some epigastric discomfort and chest tightness. Troponins were negative and repeat EKG shows sinus rhythm, no ST changes. Possibly due to underlying anxiety as patient is homeless and has family issues. Resumed p.o. lisinopril 20 mg daily and will titrate for optimal BP. Discontinued antibiotics due to low suspicion of cellulitis of left foot. Most likely pain and swelling related to his right hip surgery from few weeks ago. Per patient, orthopedic surgeon from had evaluated foot at follow-up appointment. Anticipate improvement with continued mobility. Echo, neurology recommendations, physical therapy pending. Continue aspirin and atorvastatin in setting of TIA. Medical records from [facility] are still pending. Exam Vital Signs Temp Pulse Resp BP Pulse Ox O2 Del Method 98.2 F 62 18 178/85 H 97 Room Air 08/18/24 12:02 08/18/24 12:51 08/18/24 12:51 08/18/24 12:02 08/18/24 12:02 08/18/24 04:00 Narrative Exam General: Middle age male. No acute distress, cooperative HEENT: NCAT, No JVD noted. Mucosa moist. Pupils are equal and reactive to light bilaterally Cardiovascular: Normal S1 and S2. Regular rate and rhythm. Respiratory: Lungs are clear to auscultation bilaterally. No wheezing or crackles heard. Abdomen: Soft, nontender, not distended, normal bowel sounds. Skin: Warm to touch, dry, neglected foot care with cracks and dirt. Musculoskeletal: No gross injuries. Able to move all 4 extremities. No pitting edema, no erythema. Full pedal pulses. Neuro: Alert and oriented x3. No focal neuro deficits. Psych: Normal affect and mood Objective Labs 08/19/24 04:53 08/19/24 04:53 Labs: Laboratory Results - last 24 hr 08/18/24 08/18/24 04:25 10:40 WBC 4.4 RBC 3.44 L Hgb 11.2 L Hct 33.1 L MCV 96 MCH 32.6 MCHC 33.8 RDW Std Deviation 50.0 H Plt Count 229 Neut % (Auto) 50 Lymph % (Auto) 28 [place] % (Auto) 17 H Eos % (Auto) 4 Baso % (Auto) 1 Neut # (Auto) 2.2 Lymph # (Auto) 1.2 [place] # (Auto) 0.7 Eos # (Auto) 0.2 Baso # (Auto) 0.0 Immature Gran # (Auto) 0.01 H Absolute Nucleated RBC 0.00 Immature Gran % 0 Nucleated RBC % 0 PT 11.4 INR 1.0 APTT 26.6 Sodium 142 Potassium 4.1 D Chloride 108 H Carbon Dioxide 27.1 Anion Gap 7 BUN 11 Creatinine 0.9 Estim Creat Clear Calc 111.7 eGFR > 60 BUN/Creatinine Ratio 12 Glucose 96 Calculated Osmolality 282 Calcium 8.6 Corrected Calcium 8.9 Phosphorus 2.4 Magnesium 2.1 Total Bilirubin 0.4 AST 15 ALT 8 L Alkaline Phosphatase 94 Troponin I < 0.020 Total Protein 6.5 Albumin 3.6 Globulin 2.9 Albumin/Globulin Ratio 1.2 Quality Measures Quality Measures VTE prophylaxis (Heparin subcut) and stroke Suspected type of Stroke: Unknown at this time Last known well (date): 08/16/24 Last known well (time): 17:39 Tenecteplase given: Reason(s) Tenecteplase not given: Outside the time window not given Rehab services: PT evaluation ordered VTE Prophylaxis: mechanical Antithrombotic by day 2:: not indicated (describe) Statin ordered: >75 y/o moderate or high intensity dose Anticoagulation ordered for A-fib or flutter (current or hx): not indicated Assessment & Plan Assessment Current Active Medications: Generic Name Dose Route Start Last Admin Trade Name Freq PRN Reason Stop Dose Admin Acetaminophen 650 mg 08/17/24 00:30 Acetaminophen 325 Mg Tablet PO 09/16/24 00:29 Q6H PRN Fever >101.5 Acetaminophen 650 mg 08/17/24 00:30 Acetaminophen 325 Mg Tablet PO 09/16/24 00:29 Q6H PRN PAIN SCALE 1-3 (mild Hydrocodone Bitart/Acetaminophen 1 tab 08/17/24 00:30 Hydrocodone/Apap 5/325 Tablet PO 08/22/24 00:29 Q4HR PRN PAIN SCALE 4-6 (Moderate Aspirin 81 mg 08/17/24 09:00 08/18/24 08:01 Aspirin Ec 81 Mg Tabec PO 09/16/24 08:59 81 mg QDAY ANNIA Administration Atorvastatin Calcium 40 mg 08/17/24 21:00 08/17/24 21:13 Atorvastatin Calcium 20 Mg Tablet PO 09/16/24 20:59 40 mg HS ANNIA Administration Heparin Sodium (Porcine) 5,000 unit 08/17/24 00:45 08/18/24 08:01 Heparin Sod Inj 5000 Unit/Ml Vial SC 08/31/24 00:44 5,000 unit BID ANNIA Administration Lisinopril 40 mg 08/19/24 09:00 Lisinopril 20 Mg Tablet PO 09/18/24 08:59 QDAY ANNIA Pantoprazole Sodium 40 mg 08/17/24 09:00 08/18/24 08:01 Pantoprazole 40 Mg Tablet PO 09/16/24 08:59 40 mg QDAY ANNIA Administration Sennosides 1 tab 08/17/24 00:30 Senna Tablet PO 09/16/24 00:29 QDAY PRN constipation Protocol Plan This patient is a 58-year-old male with past medical history of hypertension, hypercholesterolemia presented to the ED on 08/16/2024 with chief complaint of altered mental status and left upper extremity weakness. Additionally patient also have left hip pain and swelling. Last well-known time at 5:40 PM. Patient is back to baseline. Admitted for workup of stroke and left foot cellulitis. #Acute encephalopathy Likely due to TIA vs infection from cellulitis. No electrolyte abnormalities, no hypoglycemia, ruling out heatstroke due to normal body temperature #TIA Per ED physician, patient had altered mental status and left upper extremity weakness during transport to ED. Has CC of LLE swelling/foot pain after hip surgery at [facility] by Dr. Iniguez. Suddenly developed weakness and was confused. LWK 5:40 PM yesterday; was back to his baseline few minutes later. BP 165/87, heart rate 66, afebrile in ED. CMC, CMP unremarkable. Urinalysis showed specific gravity 1.047, proteinuria. U tox was negative. EKG showed sinus rhythm with QTc 483. Head CT was negative for acute changes. Head and neck CT showed no significant neck arterial stenosis. Plan: -Neurology Dr. Lopez consulted, appreciate recommendations -Not a candidate for tPA given resolution of symptoms -Aspirin and statin therapy -Allow permissive hypertension for the first 24 hours -Neuro Checks Q4 -passed swallow eval -echo with bubble study pending -A1C pending -Physical therapy penidng ?Patient had a recent history of left hip replacement a month ago at [facility] and will need confirmation for MRI compatibility of metallic melissa inside his left hip to proceed with MRI for evaluation of stroke (no one at [facility] is able to send records until Monday) #Cellulitis, nonpurulent-resolved He reported that he had Left hip pain and swelling that started a week ago. Neglected foot care with cracks and dirt. Venous Doppler was negative. Foot x-ray showed mild swelling and soft tissue. Ankle x-ray was negative for fracture. ?DC IV cefazolin 2 g TID for gram-positive and MSSA -DC doxycycline 100 mg PO BID to cover MRSA ?Follow-up on blood cultures negative ?Pain management as needed #Hypertension #Hypercholesteremia Patient only takes lisinopril 20 mg and Lipitor ? Continue atorvastatin 40 mg at bedtime -Resume lisinopril 20 mg #Former smoker #Former methamphetamine use #Homelessness ? Patient quit smoking cigarettes a month ago. Used to smoke 1 to 2 cigarettes once a week. Patient quit methamphetamine in January 2024 -consult social service worker Health maintenance Diet: Regular GI prophylaxis: Protonix 40 mg p.o. daily DVT prophylaxis: Heparin subcut CODE STATUS: Full code Disposition: TIA/stroke and left foot cellulitis. The patient's management plan was discussed with my attending physician Dr. Pittman. Danay Puente, PGY-1 Attending Provider Attestation/Addendum I have examined the patient, reviewed labs and imaging findings, discussed the case with the resident(s), and reviewed entered orders. I agree with the plan of care as outlined in this note, with these additional summaries/recommendations: Patient seen at bedside. No acute overnight events. Today patient endorsed some chest pressure which resolved without intervention. Troponin within normal limits and EKG did not reveal any acute ST changes indicative of ischemia but did reveal prolonged QT interval. We will avoid QT prolonging agents and discontinue Zofran. Patient continues to be at his baseline mental status. Encephalopathy and left lower extremity weakness has resolved. Less likely TIA and more likely heat exhaustion/dehydration. In-house neurology following. Patient is pending MRI brain although given his symptoms to have resolved likely little benefit and we will discuss with neurology about repeating head CT as records are pending from [facility] to confirm compatibility of hardware with MRI. Patient is pending MRI brain, echo with bubble, PT, speech therapy, and inpatient neurology evaluation. Continue aspirin and atorvastatin 40 mg p.o. daily for now. Patient had recent left hip replacement surgery at [facility] approximately 1 month ago with hardware placed. Follow-up with radiology to see if compatible and if not we will likely have to repeat head CT. Patient reports his left foot pain and swelling has improved since admission. He reports this developed after surgery and was seen by orthopedic surgeon who reported it will take time for the swelling to decrease. Low suspicion for superimposed cellulitis at this time and we will discontinue antibiotics. Continue to control vascular risk factors. Consult shall social service worker for homelessness. Patient updated on the plan and in agreement. All questions answered to satisfaction. Dr. Zain MD
[2024-08-18] MEDS: hydrALAZINE INJ 20 MG/ML VIAL IVP (16:25)
[2024-08-18 17:47] LABS: Troponin I < 0.020 ng/mL (0.0-0.045)
[2024-08-18] MEDS: ACETAMINOPHEN 325 MG TABLET 650 MG PO (19:25)
[2024-08-18] MEDS: ATORVASTATIN CALCIUM 20 MG TABLET 40 MG PO (20:35)
[2024-08-19] VITALS (57 sets, daily range): BP systolic 139–206; BP diastolic 68–121; PULSE 56–87; RESP 12–97; TEMP 36.7–37.2; O2SAT 94–100
--- NOTE | 2024-08-19 03:03 | ECHO_ITS ---
Transthoracic Echo Report Ht (in): 69 Wt (lb): 240 Exam Location: Echo Lab Status: Inpatient House Worker General: Pratibha Ware Indications: Procedure Performed: BP: 140 / 68 HR: 68 Technical Quality: Adequate MEASUREMENTS (Male / Female) Normal Values 2D ECHO LVOT Diameter 2.6 cm LA Volume Index 40.4 cm?/m? 16 - 28 cm?/m? DOPPLER AV Peak Velocity 145.0 cm/s AV Peak Gradient 8.4 mmHg LVOT Peak Velocity 140.0 cm/s LVOT Peak Gradient 7.8 mmHg AV Area Cont Eq pk 5.1 cm? MV Area PHT 2.6 cm? Mitral E Point Velocity 102.0 cm/s Mitral A Point Velocity 80.0 cm/s Mitral E to A Ratio 1.3 LV E' Lateral Velocity 9.6 cm/s Mitral E to LV E' Lateral Ratio 10.7 LV E' Septal Velocity 8.3 cm/s Mitral E to LV E' Septal Ratio 12.3 TR Peak Velocity 224.0 cm/s TR Peak Gradient 20.1 mmHg PV Peak Velocity 157.0 cm/s PV Peak Gradient 9.9 mmHg FINDINGS Left Ventricle Normal left ventricular size, wall thickness, systolic function with no obvious regional wall motion abnormalities. Normal left ventricular diastolic filling pattern for age. The ejection fraction is visually estimated at 60 %. Right Ventricle The right ventricle is normal in size and systolic function. The estimated right ventricular systolic pressure, 20 mmHg. RAP 5mmHg. Left Atrium The left atrial cavity size is moderately increased. Right Atrium The right atrial cavity size is moderately increased. Atrial Septum The interatrial septum appears normal with no evidence of a shunt. Aorta The aorta is normal by two-dimensional, color flow and Doppler interrogation. Mitral Valve The mitral valve is normal by two-dimensional, color flow and Doppler interrogation. There is trace mitral regurgitation. Aortic Valve The aortic valve is trileaflet and normal by two-dimensional, color flow and Doppler interrogation. There is no significant aortic valve regurgitation. Tricuspid Valve The tricuspid valve is normal by two-dimensional, color flow and Doppler interrogation. There is trace tricuspid regurgitation. Pulmonic Valve The pulmonic valve is not well visualized. There is no significant pulmonic valve regurgitation. Vessels The pulmonary artery appears normal. The inferior vena cava pulmonary and hepatic veins appear normal. Pericardium The pericardium is normal by two-dimensional imaging. There is no significant pericardial effusion. CONCLUSIONS Indications: TIA/Stroke Normal LV. Estimated EF 60%. Normal Diastology. RV Normal. RVSP 20mmHg. RAP 5mmHg. Moderate SHAWN. Trace TR, MR. No Pericardial Effusion. Bala Ribera (Electronically Signed) Final Date: 20 August 2024 11:49
[2024-08-19 05:35] LABS: Basophils # (Auto) 0.0 Thou/mm3 (0.0-0.2); Basophils % (Auto) 1 % (0-2.5); Eosinophils # (Auto) 0.1 Thou/mm3 (0.0-0.5); Eosinophils % (Auto) 3 % (0-10); Hematocrit 33.6 % (41.0-53.0); Hemoglobin 11.5 g/dL (13.5-16.0); Immature Granulocytes Auto 0.02 Thou/mm3 (0.00-0.00); Lymphocytes # (Auto) 1.0 Thou/mm3 (1.0-4.8); Lymphocytes % (Auto) 27 % (10-50); Mean Corpuscular HGB Conc 34.2 g/dl (31.0-37.0); Mean Corpuscular Hemoglobin 32.5 pg (25.0-35.0); Mean Corpuscular Volume 95 fL (80-100); Monocytes # (Auto) 0.7 Thou/mm3 (0.0-0.8); Monocytes % (Auto) 18 % (0-12); Neutrophils # (Auto) 2.0 Thou/mm3 (1.8-7.7); Neutrophils % (Auto) 51 % (37-80); Nucleated Red Blood Cell # 0.00 Thou/mm3 (0.00-0.00); Nucleated Red Blood Cell % 0 /100 WBC (0); Platelet Count 227 Thou/mm3 (140-440); RDW Standard Deviation 48.8 fL (35.1-43.9); Red Blood Count 3.54 Miln/mm3 (4.50-5.90); White Blood Count 3.9 Thou/mm3 (3.8-10.6)
[2024-08-19 05:53] LABS: Alanine Aminotransferase 7 U/L (10-49); Albumin, Serum 3.9 gm/dL (3.5-5.0); Albumin/Globulin Ratio 1.6 (1.2-2.2); Alkaline Phosphatase 95 U/L (46-116); Anion Gap 7 (7-16); Aspartate Amino Transferase 16 U/L (0-34); BUN/Creatinine Ratio 11 Ratio (12-20); Bilirubin,Total 0.5 mg/dL (0.3-1.2); Blood Urea Nitrogen 9 mg/dL (9-23); Calcium 9.1 mg/dL (8.3-10.6); Calcium (Corrected) 9.2 mg/dL (8.5-10.1); Carbon Dioxide 27.3 mMol/L (20.0-31.0); Chloride 105 mMol/L (98-107); Creatinine (Component) 0.8 mg/dL (0.6-1.3); Estimated Creatinine Clearance 125.6 mL/min (>60); Globulin 2.4 gm/dL (2.3-3.5); Glucose 98 mg/dL (74-106); Magnesium 2.1 mg/dL (1.6-2.6); Osmolality,Calculated 276 (275-295); Phosphorous 3.4 mg/dL (2.4-5.1); Potassium 3.8 mMol/L (3.4-5.1); Sodium 139 mMol/L (136-145); Total Protein 6.3 gm/dL (5.7-8.2); eGFR > 60 See Note
[2024-08-19] MEDS: ACETAMINOPHEN 325 MG TABLET 650 MG PO ×2 (07:29→17:58)
[2024-08-19] MEDS: PANTOPRAZOLE 40 MG TABLET PO (08:23)
[2024-08-19] MEDS: ASPIRIN EC 81 MG TABEC PO (08:23)
[2024-08-19] MEDS: HEPARIN SOD INJ 5000 UNIT/ML VIAL SC ×2 (08:24→20:45)
[2024-08-19] MEDS: hydrALAZINE INJ 20 MG/ML VIAL 10 MG IVP ×2 (11:56→16:21)
[2024-08-19] MEDS: NIFEdipine XL 30 MG TABCR PO (12:36)
--- NOTE | 2024-08-19 15:16 | PD.RESPRO ---
Documentation for date of: 08/19/24 Subjective Subjective Interval history: Patient examined at bedside, no events overnight. Has no major complaints saying that chest discomfort has improved. Labs are unremarkable, blood pressure improved but still elevated after hydralazine and resuming home lisinopril. Start p.o. nicardipine 30 mg daily to optimize BP control. Neurology Dr. Lopez will evaluate patient for further recommendations. Patient was unable to tolerate MRI machine and is denying any sedating or calming agents to assist in getting the imaging done. Echo results pending, physical therapy evaluation pending. Continue aspirin and atorvastatin. Exam Vital Signs Temp Pulse Resp BP Pulse Ox O2 Del Method 98.4 F 70 16 168/85 H 99 Room Air 08/19/24 08:23 08/19/24 12:36 08/19/24 11:51 08/19/24 12:36 08/19/24 11:51 08/18/24 16:33 Narrative Exam General: Middle age male. No acute distress, cooperative HEENT: NCAT, No JVD noted. Mucosa moist. Pupils are equal and reactive to light bilaterally Cardiovascular: Normal S1 and S2. Regular rate and rhythm. Respiratory: Lungs are clear to auscultation bilaterally. No wheezing or crackles heard. Abdomen: Soft, nontender, not distended, normal bowel sounds. Skin: Warm to touch, dry, neglected foot care with cracks and dirt. Musculoskeletal: No gross injuries. Able to move all 4 extremities. No pitting edema, no erythema. Full pedal pulses. Neuro: Alert and oriented x3. No focal neuro deficits. Psych: Normal affect and mood Objective Labs 08/19/24 04:53 08/19/24 04:53 Labs: Laboratory Results - last 24 hr 08/18/24 08/19/24 17:18 04:53 WBC 3.9 RBC 3.54 L Hgb 11.5 L Hct 33.6 L MCV 95 MCH 32.5 MCHC 34.2 RDW Std Deviation 48.8 H Plt Count 227 Neut % (Auto) 51 Lymph % (Auto) 27 [place] % (Auto) 18 H Eos % (Auto) 3 Baso % (Auto) 1 Neut # (Auto) 2.0 Lymph # (Auto) 1.0 [place] # (Auto) 0.7 Eos # (Auto) 0.1 Baso # (Auto) 0.0 Immature Gran # (Auto) 0.02 H Absolute Nucleated RBC 0.00 Immature Gran % 1 H Nucleated RBC % 0 Sodium 139 Potassium 3.8 Chloride 105 Carbon Dioxide 27.3 Anion Gap 7 BUN 9 Creatinine 0.8 Estim Creat Clear Calc 125.6 eGFR > 60 BUN/Creatinine Ratio 11 L Glucose 98 Calculated Osmolality 276 Calcium 9.1 Corrected Calcium 9.2 Phosphorus 3.4 Magnesium 2.1 Total Bilirubin 0.5 AST 16 ALT 7 L Alkaline Phosphatase 95 Troponin I < 0.020 Total Protein 6.3 Albumin 3.9 Globulin 2.4 Albumin/Globulin Ratio 1.6 Quality Measures Quality Measures VTE prophylaxis (Heparin subcut) and stroke Suspected type of Stroke: Unknown at this time Last known well (date): 08/16/24 Last known well (time): 17:39 Tenecteplase given: Reason(s) Tenecteplase not given: Outside the time window not given Rehab services: PT evaluation ordered VTE Prophylaxis: pharmaceutical Antithrombotic by day 2:: ordered Statin ordered: >75 y/o moderate or high intensity dose Anticoagulation ordered for A-fib or flutter (current or hx): not indicated Assessment & Plan Assessment Current Active Medications: Generic Name Dose Route Start Last Admin Trade Name Freq PRN Reason Stop Dose Admin Acetaminophen 650 mg 08/17/24 00:30 Acetaminophen 325 Mg Tablet PO 09/16/24 00:29 Q6H PRN Fever >101.5 Acetaminophen 650 mg 08/17/24 00:30 08/19/24 07:29 Acetaminophen 325 Mg Tablet PO 09/16/24 00:29 650 mg Q6H PRN Administration PAIN SCALE 1-3 (mild Hydrocodone Bitart/Acetaminophen 1 tab 08/17/24 00:30 Hydrocodone/Apap 5/325 Tablet PO 08/22/24 00:29 Q4HR PRN PAIN SCALE 4-6 (Moderate Aspirin 81 mg 08/17/24 09:00 08/19/24 08:23 Aspirin Ec 81 Mg Tabec PO 09/16/24 08:59 81 mg QDAY ANNIA Administration Atorvastatin Calcium 40 mg 08/17/24 21:00 08/18/24 20:35 Atorvastatin Calcium 20 Mg Tablet PO 09/16/24 20:59 40 mg HS ANNIA Administration Heparin Sodium (Porcine) 5,000 unit 08/17/24 00:45 06/30/25 08:24 Heparin Sod Inj 5000 Unit/Ml Vial SC 08/31/24 00:44 5,000 unit BID ANNIA Administration Lisinopril 40 mg 08/19/24 09:00 08/19/24 08:23 Lisinopril 20 Mg Tablet PO 09/18/24 08:59 40 mg QDAY ANNIA Administration Nifedipine 30 mg 08/19/24 13:00 08/19/24 12:36 Nifedipine Xl 30 Mg Tabcr PO 09/18/24 12:59 30 mg QDAY ANNIA Administration Pantoprazole Sodium 40 mg 08/17/24 09:00 08/19/24 08:23 Pantoprazole 40 Mg Tablet PO 09/16/24 08:59 40 mg QDAY ANNIA Administration Sennosides 1 tab 08/17/24 00:30 Senna Tablet PO 09/16/24 00:29 QDAY PRN constipation Protocol Plan This patient is a 58-year-old male with past medical history of hypertension, hypercholesterolemia presented to the ED on 08/16/2024 with chief complaint of altered mental status and left upper extremity weakness. Additionally patient also have left hip pain and swelling. Last well-known time at 5:40 PM. Patient is back to baseline. Admitted for workup of stroke and left foot cellulitis. #Acute encephalopathy-resolved #Weakness likely 2/2 TIA Likely due to TIA vs infection from cellulitis. No electrolyte abnormalities, no hypoglycemia, ruling out heatstroke due to normal body temperature Per ED physician, patient had altered mental status and left upper extremity weakness during transport to ED. Has CC of LLE swelling/foot pain after hip surgery at [facility] by Dr. Iniguez. Suddenly developed weakness and was confused. LWK 5:40 PM day before admission; was back to his baseline few minutes later. BP 165/87, heart rate 66, afebrile in ED. CMC, CMP unremarkable. Urinalysis showed specific gravity 1.047, proteinuria. U tox was negative. EKG showed sinus rhythm with QTc 483. Head CT was negative for acute changes. Head and neck CT showed no significant neck arterial stenosis. Plan: -Neurology Dr. Lopez consulted, appreciate recommendations -Not a candidate for tPA given resolution of symptoms -Aspirin and statin therapy -passed swallow eval -echo with bubble study pending -A1C pending -Physical therapy pending -patient is denying MRI imaging of brain due to claustrophobia #Hypertension #Hypercholesteremia Patient only takes lisinopril 20 mg and Lipitor ? Continue atorvastatin 40 mg at bedtime -Resume lisinopril 20 mg -started nifedipine 30mg PO daily -IV hydralazine 10mg x1 PRN for SBP>170 #Former smoker #Former methamphetamine use #Homelessness ? Patient quit smoking cigarettes a month ago. Used to smoke 1 to 2 cigarettes once a week. Patient quit methamphetamine in January 2024 -consult social worker aide #Cellulitis, nonpurulent-resolved Health maintenance Diet: Regular GI prophylaxis: Protonix 40 mg p.o. daily DVT prophylaxis: Heparin subcut CODE STATUS: Full code Disposition: tele TIA/stroke The patient's management plan was discussed with my attending physician Dr. Pittman. Danay Puente, PGY-1 Attending Provider Attestation/Addendum I have examined the patient, reviewed labs and imaging findings, discussed the case with the resident(s), and reviewed entered orders. I agree with the plan of care as outlined in this note, with these additional summaries/recommendations: Patient seen at bedside. No acute overnight events. Patient went for MRI brain today although experienced anxiety/panic attack. He was given low-dose Ativan without resolution and MRI canceled for today. Patient seen after and he reports he feels very anxious. Systolic blood pressure noted up into the 200s while at bedside and we will aggressively treat blood pressure. Patient continues to be at his baseline mental status. Encephalopathy and left lower extremity weakness has resolved. Less likely TIA and more likely heat exhaustion/dehydration. In-house neurology following. We will discuss with neurology about possibly repeating a head CT as patient was unable to tolerate MRI. Pending echocardiogram with bubble study and physical therapy evaluation. Continue aspirin and atorvastatin 40 mg p.o. daily for now. Patient had recent left hip replacement surgery at [facility] approximately 1 month ago with hardware placed. Patient reports his left foot pain and swelling has improved since admission. He reports this developed after surgery and was seen by orthopedic surgeon who reported it will take time for the swelling to decrease. Low suspicion for superimposed cellulitis at this time and we will discontinue antibiotics. Continue to avoid QT prolonging agents for prolonged QT interval. Continue to control vascular risk factors. Consult social worker aide for homelessness. Patient updated on the plan and in agreement. All questions answered to satisfaction. Dr. Zain MD
--- NOTE | 2024-08-19 16:10 | PC.SS ---
INTERIOR DESIGN CONSULTANT conducted bedside contact with the patient conduct initial assessment and to discuss discharge planning.? Patient confirmed demographic information.? Patient resides in the community of [place].? Per patient decision recently became homeless.? Patient reports access to SSI and SNAP.? Patient does not utilize DME to assist with ambulation.? Patient does not utilize home oxygen.? Patient describes ability to complete ADL?s independently.? Patient identified sister, Laurie Thomson, ; as medical surrogate decision maker. ?Patient?s PCP is GERALD Kidd [place].? Patient does not participate with dialysis.? Patient utilizes [facility] for medication services.? Plan is for the patient to return to the community at the time of discharge.? INTERIOR DESIGN CONSULTANT discussed intermediate option with the patient.? Patient declined.? INTERIOR DESIGN CONSULTANT provided patient with information to housing programs in [facility] and [email or web address].? Patient informed INTERIOR DESIGN CONSULTANT that he will follow up at own discretion.? health services information specialist to assist the patient with transportation at the time of discharge.? Patient informed INTERIOR DESIGN CONSULTANT that drop off location will be mother?s residence.? Patient reports unable to stay at mother?s residence due to family dynamics with nephew.? No further discharge needs identified by the patient.? No further intervention required at this time, manager social work will be available to address any further concerns.? Next of Kin: Laurie Berto D/C Plan: [facility]
--- NOTE | 2024-08-19 17:20 | PC.PT ---
PT eval only. Patient is I with transfers and ambulation with AD.
[2024-08-19] MEDS: ATORVASTATIN CALCIUM 20 MG TABLET 40 MG PO (20:42)
[2024-08-19] MEDS: NITROFURANTOIN MACRO 100 MG CAPSULE PO (20:45)
--- NOTE | 2024-08-19 23:47 | PD.NEUROPROG ---
Documentation for date of: 08/19/24 Subjective Subjective Interval history: Patient was seen in ICU today. Denies any new symptoms or recurrence of similar symptoms after admission. As he is significantly claustrophobic, he refused MRI brain. Exam - Neurology Vital Signs Temp Pulse Resp BP Pulse Ox O2 Del Method 98.9 F 73 19 144/76 H 98 Room Air 08/19/24 16:05 08/19/24 17:59 08/19/24 16:15 08/19/24 17:59 08/19/24 17:59 08/18/24 16:33 Narrative Exam GENERAL APPEARANCE: Well hydrated, well-nourished in no acute distress. HEENT: Normocephalic, atraumatic, extraocular movements intact. Pupils: Equal reacting to light and accommodation NECK: Supple, no JVD or bruits. CARDIOVASULAR: Heart: S1, S2 heard, regular without S3-S4 or murmur no rubs or gallops. LUNGS/CHEST: Clear to auscultation bilaterally. No rails, rhonchi, or wheezing. Normal inspection. ABDOMEN: Soft, nontender, with normal bowel sounds. No pulsatile masses. No rebound, rigidity, or guarding. Normal inspection and palpation. EXTREMITIES: Normal inspection and palpation. No edema, clubbing or cyanosis. SKIN: Warm and dry without rashes. Normal inspection. MUSCULOSKELETAL: No cervical, thoracic, lumbar or midline bony tenderness. Normal inspection. NEURO: Alert, awake and oriented x3. Cranial nerves: II through XII grossly intact. Speech and language: Normal with no dysarthria or dysphasia. Motor system: Tone and bulk: Normal: Strength: 5 out of 5 in all 4 extremities; No pronator drift noted. Deep tendon reflexes: 2+ bilaterally symmetrical. Plantar reflex: Downgoing bilaterally. Sensory system: Intact to all modalities of sensation bilaterally. Coordination: Intact to [id number]-ufqa-bigkv and gqep-unzw-htjw test bilaterally. No ataxia, no dysmetria, or dysdiadochokinesia noted. No intention tremors noted. Gait: Normal. Toe, heel, tandem walk all are normal. Romberg: Negative. No signs of meningeal irritation noted. PSYCHIATRIC: Normal mood and affect. Objective Labs 08/19/24 04:53 08/19/24 04:53 Labs: Laboratory Results - last 24 hr 06/30/25 04:53 WBC 3.9 RBC 3.54 L Hgb 11.5 L Hct 33.6 L MCV 95 MCH 32.5 MCHC 34.2 RDW Std Deviation 48.8 H Plt Count 227 Neut % (Auto) 51 Lymph % (Auto) 27 [place] % (Auto) 18 H Eos % (Auto) 3 Baso % (Auto) 1 Neut # (Auto) 2.0 Lymph # (Auto) 1.0 [place] # (Auto) 0.7 Eos # (Auto) 0.1 Baso # (Auto) 0.0 Immature Gran # (Auto) 0.02 H Absolute Nucleated RBC 0.00 Immature Gran % 1 H Nucleated RBC % 0 Sodium 139 Potassium 3.8 Chloride 105 Carbon Dioxide 27.3 Anion Gap 7 BUN 9 Creatinine 0.8 Estim Creat Clear Calc 125.6 eGFR > 60 BUN/Creatinine Ratio 11 L Glucose 98 Calculated Osmolality 276 Calcium 9.1 Corrected Calcium 9.2 Phosphorus 3.4 Magnesium 2.1 Total Bilirubin 0.5 AST 16 ALT 7 L Alkaline Phosphatase 95 Total Protein 6.3 Albumin 3.9 Globulin 2.4 Albumin/Globulin Ratio 1.6 Assessment & Plan Assessment and plan (1) TIA (transient ischemic attack): Status: Acute Assessment and plan: Resolved, no recurrence reported. Workup is negative so far. Patient refused MRI brain. Continue with aspirin and statin. Follow-up with echo with bubble study (2) Hypertension: Status: Chronic Assessment and plan: Continue with lisinopril and nifedipine (3) Drug abuse: Status: Chronic Assessment and plan: With a history of methamphetamine abuse, social service has been involved to help with continuous cessation (4) Avascular necrosis of bone of left hip: Status: Acute Assessment and plan: Status post to surgery
[2024-08-20] VITALS (73 sets, daily range): BP systolic 128–154; BP diastolic 68–98; PULSE 55–97; RESP 9–28; TEMP 36.1–37.1; O2SAT 76–99; BMI 36.4
[2024-08-20 06:52] LABS: Basophils # (Auto) 0.0 Thou/mm3 (0.0-0.2); Basophils % (Auto) 0 % (0-2.5); Eosinophils # (Auto) 0.1 Thou/mm3 (0.0-0.5); Eosinophils % (Auto) 3 % (0-10); Hematocrit 36.8 % (41.0-53.0); Hemoglobin 12.5 g/dL (13.5-16.0); Immature Granulocytes Auto 0.01 Thou/mm3 (0.00-0.00); Lymphocytes # (Auto) 1.4 Thou/mm3 (1.0-4.8); Lymphocytes % (Auto) 32 % (10-50); Mean Corpuscular HGB Conc 34.0 g/dl (31.0-37.0); Mean Corpuscular Hemoglobin 32.6 pg (25.0-35.0); Mean Corpuscular Volume 96 fL (80-100); Monocytes # (Auto) 0.7 Thou/mm3 (0.0-0.8); Monocytes % (Auto) 17 % (0-12); Neutrophils # (Auto) 2.0 Thou/mm3 (1.8-7.7); Neutrophils % (Auto) 47 % (37-80); Nucleated Red Blood Cell # 0.00 Thou/mm3 (0.00-0.00); Nucleated Red Blood Cell % 0 /100 WBC (0); Platelet Count 249 Thou/mm3 (140-440); RDW Standard Deviation 49.9 fL (35.1-43.9); Red Blood Count 3.83 Miln/mm3 (4.50-5.90); White Blood Count 4.2 Thou/mm3 (3.8-10.6)
[2024-08-20 06:57] LABS: Alanine Aminotransferase 17 U/L (10-49); Albumin, Serum 3.9 gm/dL (3.5-5.0); Albumin/Globulin Ratio 1.3 (1.2-2.2); Alkaline Phosphatase 98 U/L (46-116); Anion Gap 5 (7-16); Aspartate Amino Transferase 33 U/L (0-34); BUN/Creatinine Ratio 9 Ratio (12-20); Bilirubin,Total 0.6 mg/dL (0.3-1.2); Blood Urea Nitrogen 8 mg/dL (9-23); Calcium 8.9 mg/dL (8.3-10.6); Calcium (Corrected) 9.0 mg/dL (8.5-10.1); Carbon Dioxide 28.9 mMol/L (20.0-31.0); Chloride 108 mMol/L (98-107); Creatinine (Component) 0.9 mg/dL (0.6-1.3); Estimated Creatinine Clearance 110.2 mL/min (>60); Globulin 3.1 gm/dL (2.3-3.5); Glucose 96 mg/dL (74-106); Lipase 28 U/L (12-53); Magnesium 2.3 mg/dL (1.6-2.6); Osmolality,Calculated 281 (275-295); Phosphorous 3.4 mg/dL (2.4-5.1); Potassium 4.0 mMol/L (3.4-5.1); Sodium 142 mMol/L (136-145); Thyroid Stimulating Hormone 1.86 uIU/mL (0.55-4.78); Total Protein 7.0 gm/dL (5.7-8.2); eGFR > 60 See Note
[2024-08-20] MEDS: ASPIRIN EC 81 MG TABEC PO (09:05)
[2024-08-20] MEDS: HEPARIN SOD INJ 5000 UNIT/ML VIAL SC (09:05)
[2024-08-20] MEDS: NITROFURANTOIN MACRO 100 MG CAPSULE PO (09:07)
[2024-08-20] MEDS: NIFEdipine XL 30 MG TABCR PO (09:08)
[2024-08-20] MEDS: PANTOPRAZOLE 40 MG TABLET PO (09:09)
--- NOTE | 2024-08-20 09:16 | PD.RESPRO ---
Documentation for date of: 08/20/24 Subjective Subjective Interval history: Patient examined at bedside, no events overnight. Patient reports being in good spirits. Has no major complaints saying that chest discomfort has improved. He reports regular bowel movements and urination. Labs are unremarkable, blood pressure improved but still mildly elevated after hydralazine and resuming home lisinopril. Yesterday started p.o. nicardipine 30 mg daily to optimize BP control. Neurology Dr. Lopez will evaluate patient for further recommendations. Patient was unable to tolerate MRI machine and is denying any sedating or calming agents to assist in getting the imaging done. Is agreeable to repeat head CT today. Echo results pending, physical therapy evaluation pending. Continue aspirin and atorvastatin. Exam Vital Signs Temp Pulse Resp BP Pulse Ox O2 Del Method 97 F 68 13 154/79 H 97 Room Air 08/20/24 04:00 08/20/24 09:08 08/20/24 04:00 08/20/24 09:08 08/20/24 04:00 08/20/24 04:00 Constitutional Constitutional: no acute distress Routine HEENT Exam Head: Present normocephalic and atraumatic Eye: Present EOMI and PERRL Routine Respiratory Exam Respiratory: Present chest non-tender, lungs clear, normal breath sounds and no resp distress Routine Cardiovascular Exam Cardiovascular: Present RRR and tachycardia Routine Abdominal Exam Abdominal: Present soft and normoactive bowel sounds Routine Extremities Exam Extremities: Present full ROM, pulses intact and normal capillary refill Routine Skin Exam Comments: Well healing left hip scar incision. No eccyhmosis, erthyema, nor swelling noted on either leg. Routine Neurological Exam Neurological: Present alert, oriented X3, moving all extremities, normal tone and vision grossly intact Objective Labs 08/20/24 05:24 08/20/24 05:24 Labs: Laboratory Results - last 24 hr 08/20/24 05:24 WBC 4.2 RBC 3.83 L Hgb 12.5 L Hct 36.8 L MCV 96 MCH 32.6 MCHC 34.0 RDW Std Deviation 49.9 H Plt Count 249 Neut % (Auto) 47 Lymph % (Auto) 32 [place] % (Auto) 17 H Eos % (Auto) 3 Baso % (Auto) 0 Neut # (Auto) 2.0 Lymph # (Auto) 1.4 [place] # (Auto) 0.7 Eos # (Auto) 0.1 Baso # (Auto) 0.0 Immature Gran # (Auto) 0.01 H Absolute Nucleated RBC 0.00 Immature Gran % 0 Nucleated RBC % 0 Sodium 142 Potassium 4.0 Chloride 108 H Carbon Dioxide 28.9 Anion Gap 5 L BUN 8 L Creatinine 0.9 Estim Creat Clear Calc 110.2 eGFR > 60 BUN/Creatinine Ratio 9 L Glucose 96 Calculated Osmolality 281 Calcium 8.9 Corrected Calcium 9.0 Phosphorus 3.4 Magnesium 2.3 Total Bilirubin 0.6 AST 33 ALT 17 Alkaline Phosphatase 98 Total Protein 7.0 Albumin 3.9 Globulin 3.1 Albumin/Globulin Ratio 1.3 Lipase 28 TSH 1.86 Quality Measures Quality Measures VTE prophylaxis (Heparin subcut) and stroke Suspected type of Stroke: Unknown at this time Last known well (date): 08/16/24 Last known well (time): 17:39 Tenecteplase given: Reason(s) Tenecteplase not given: Outside the time window not given Rehab services: PT evaluation ordered VTE Prophylaxis: pharmaceutical Antithrombotic by day 2:: ordered Statin ordered: >75 y/o moderate or high intensity dose Anticoagulation ordered for A-fib or flutter (current or hx): ordered Assessment & Plan Assessment Current Active Medications: Generic Name Dose Route Start Last Admin Trade Name Jai PRN Reason Stop Dose Admin Acetaminophen 650 mg 08/17/24 00:30 Acetaminophen 325 Mg Tablet PO 09/16/24 00:29 Q6H PRN Fever >101.5 Acetaminophen 650 mg 08/17/24 00:30 08/19/24 17:58 Acetaminophen 325 Mg Tablet PO 09/16/24 00:29 650 mg Q6H PRN Administration PAIN SCALE 1-3 (mild Hydrocodone Bitart/Acetaminophen 1 tab 08/17/24 00:30 Hydrocodone/Apap 5/325 Tablet PO 08/22/24 00:29 Q4HR PRN PAIN SCALE 4-6 (Moderate Aspirin 81 mg 08/17/24 09:00 08/20/24 09:05 Aspirin Ec 81 Mg Tabec PO 09/16/24 08:59 81 mg QDAY ANNIA Administration Atorvastatin Calcium 40 mg 08/17/24 21:00 08/19/24 20:42 Atorvastatin Calcium 20 Mg Tablet PO 09/16/24 20:59 40 mg HS ANNIA Administration Heparin Sodium (Porcine) 5,000 unit 08/17/24 00:45 08/20/24 09:05 Heparin Sod Inj 5000 Unit/Ml Vial SC 08/31/24 00:44 5,000 unit BID ANNIA Administration Lisinopril 40 mg 08/19/24 09:00 08/20/24 09:05 Lisinopril 20 Mg Tablet PO 09/18/24 08:59 40 mg QDAY ANNIA Administration Nifedipine 30 mg 08/19/24 13:00 08/20/24 09:08 Nifedipine Xl 30 Mg Tabcr PO 09/18/24 12:59 30 mg QDAY ANNIA Administration Nitrofurantoin Macrocrystals 100 mg 08/19/24 21:00 08/20/24 09:07 Nitrofurantoin Macro 100 Mg Capsule PO 08/26/24 20:59 100 mg BID ANNIA Administration Pantoprazole Sodium 40 mg 08/17/24 09:00 08/20/24 09:09 Pantoprazole 40 Mg Tablet PO 09/16/24 08:59 40 mg QDAY ANNIA Administration Sennosides 1 tab 08/17/24 00:30 Senna Tablet PO 09/16/24 00:29 QDAY PRN constipation Protocol Plan This patient is a 58-year-old male with past medical history of hypertension, hypercholesterolemia presented to the ED on 08/16/2024 with chief complaint of altered mental status and left upper extremity weakness. Additionally patient also have left hip pain and swelling. Last well-known time at 5:40 PM. Patient is back to baseline. Admitted for workup of stroke and left foot cellulitis. #Acute encephalopathy-resolved #Weakness likely 2/2 TIA Likely due to TIA vs infection from cellulitis. No electrolyte abnormalities, no hypoglycemia, ruling out heatstroke due to normal body temperature Per ED physician, patient had altered mental status and left upper extremity weakness during transport to ED. Has CC of LLE swelling/foot pain after hip surgery at [facility] by Dr. Iniguez. Suddenly developed weakness and was confused. LWK 5:40 PM day before admission; was back to his baseline few minutes later. BP 165/87, heart rate 66, afebrile in ED. CMC, CMP unremarkable. Urinalysis showed specific gravity 1.047, proteinuria. U tox was negative. EKG showed sinus rhythm with QTc 483. Head CT was negative for acute changes. Head and neck CT showed no significant neck arterial stenosis. Plan: -Neurology Dr. Lopez consulted, appreciate recommendations -Not a candidate for tPA given resolution of symptoms -Aspirin and statin therapy -passed swallow eval -echo with bubble study pending -A1C pending -Physical therapy pending -patient is denying MRI imaging of brain due to claustrophobia -Consider repeat head CT #Hypertension #Hypercholesteremia Patient only takes lisinopril 20 mg and Lipitor ? Continue atorvastatin 40 mg at bedtime -Resume lisinopril 20 mg -Continue nifedipine 30mg PO daily -IV hydralazine 10mg x1 PRN for SBP>170 #Former smoker #Former methamphetamine use #Homelessness ? Patient quit smoking cigarettes a month ago. Used to smoke 1 to 2 cigarettes once a week. Patient quit methamphetamine in January 2024 -consult social secretary #Cellulitis, nonpurulent-resolved Health maintenance Diet: Regular GI prophylaxis: Protonix 40 mg p.o. daily DVT prophylaxis: Heparin subcut CODE STATUS: Full code Disposition: tele TIA/stroke The patient's management plan was discussed with my attending physician Dr. Hopson. Paulo Case, PGY-1
--- NOTE | 2024-08-20 11:13 | PC.SS ---
Update: MRI pending. Neurology is consulting.
--- NOTE | 2024-08-20 15:45 | PC.SS ---
Rounding Note: Plan is to d/c patient today. Patient will return to the community.
--- NOTE | 2024-08-20 15:55 | ESDS_ITS ---
<Statement entered by Robe Hopson MD - 08/22/24 19:43> I have discussed and was present for the essential components of the history, physical examination, diagnosis, and treatment plan with the resident. I agree with the patient's care as documented by the resident and amended herein by me. Robe Hopson MD FACP. <Statement entered by Guillermo Malone MD - 08/20/24 19:59> I discussed and supervised with the internet project manager physician who took care of this patient. I personally saw and examined the patient. I agree with discharge plan. Disclaimer: Despite multiple revisions, due to the dictation software being used, the document bellow may not be free of grammatical errors including phonetic/typographic errors. However, this does not deter from our commitment to providing health care in the patient's best interest in mind. Plan of care discussed with attending physician Dr. Emiliana Malone MD, PGY 3 Planned Discharge Date 08/20/24 DS: Providers Provider Date of admission: 08/17/24 00:30 Primary care physician: Physician No Primary/Family Admitting Provider: Edinson Nelson MD Attending Provider on Admission: Edinson Nelson MD Consults: 08/16/24 18:05 Consult to Neurology / Tele-Neurology Routine Comment: Consulting Provider: [facility] 08/17/24 00:34 Referral Physical Therapy Routine Comment: Physician Instructions: 08/17/24 05:31 [facility] Referral - Nutrition Routine Comment: Positive screening for nutrition needs. [facility] Referral - Safety Routine Comment: Positive screening for safety needs. [facility] Referral - Transportation Routine Comment: Positive screening for transportation needs. [facility] Referral - Utilities Routine Comment: Positive screening for utility assistance needs. 08/17/24 07:15 Consult to Neurology / Tele-Neurology Routine Comment: Consulting Provider: Zaki Lopez Attending Provider on DC: Dr. Hopson, Attending Discharging Provider: RESIDENT Amy DS: Diagnosis Problem List Completed Was Problem List Reviewed/Reconciled?: Yes Hospital Course Hospital Course Hospital course: Patient presented to ED on 08/16. Per ED note, 58 y/o male BIBA c/o altered mental status and left upper extremity weakness onset during transport to ED. Patient initially called EMS due to left hip pain and LLE swelling s/p hip surgery performed by Dr. Iniguez at [facility]. In the ED, patient was hypertensive blood pressure 165/87, heart rate 66, afebrile. Foot x-ray showed mild swelling and soft tissue. Ankle x-ray was negative for fracture. EKG showed sinus rhythm with QTc 483. Head CT was negative for acute changes. Head and neck CT showed no significant neck arterial stenosis. He was started on IV cefazolin 2 g TID for gram-positive and MSSA, doxycycline 100 mg PO BID to cover MRSA. 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 Patient was started on lisinopril 20 mg and lipitor 40 mg, with the addition of nifedipine 30mg. He refused the MRI because it caused him claustrophobia and stated ativan would not help him either. Upon discharge today the patient was examined at bedside, no events overnight. Patient reports being in good spirits. Has no major complaints saying that chest discomfort has improved. He reports regular bowel movements and urination.Labs are unremarkable, blood pressure improved but still mildly elevated after hydralazine and resuming home lisinopril. Patient shows no signs of focal neurological deficits or weakness, no signs cellulitis, nor UTI. Patient's hypertension is now more under control <140s systolic. Problem List #Acute encephalopathy-Resolved #Weakness likely 2/2 TIA - Resolved #Hypertension - Chronic, stabilized on current regiment #Hypercholesteremia - Chronic, stabilized on current regiment #Cellulitis, nonpurulent-resolved #Former smoker #Former methamphetamine use #Homelessness Attestation: I discussed this case with my attending Dr. Hopson and senior resident Dr. Malone Plan: You have been started on the following medications: -aspirin 81mg daily -atorvastatin 40mg daily -Macrobid 100mg twice daily x4 days Please continue taking all other medications as previously prescribed Please follow up with your PCP in 7-10 days Please return to ED if you develop new or worsening symptoms Status at Discharge Functional status at discharge: independent ambulation Overall status at discharge: patient is back to baseline Time Spent with Patient Time attestation: Total time spent providing and/or coordinating discharge services: Time spent: Greater than 30 minutes Exam Vital Signs Temp Pulse Resp BP Pulse Ox O2 Del Method 97 F 68 13 154/79 H 97 Room Air 08/20/24 04:00 08/20/24 09:08 08/20/24 04:00 08/20/24 09:08 08/20/24 04:00 08/20/24 04:00 Constitutional Constitutional: no acute distress and average body habitus Routine HEENT Exam Head: Present normocephalic and atraumatic Eye: Present EOMI, PERRL and normal accommodation ENT: Present mucous membranes moist Routine Respiratory Exam Respiratory: Present chest non-tender, lungs clear, normal breath sounds and no resp distress Routine Cardiovascular Exam Cardiovascular: Present RRR, S1 and S2 Routine Abdominal Exam Abdominal: Present soft and normoactive bowel sounds Routine Extremities Exam Extremities: Present full ROM, pulses intact and normal capillary refill Routine Skin Exam Skin: Present intact, dry, warm and normal turgor Routine Neurological Exam Neurological: Present alert, oriented X3, CN II-XII intact, vision grossly intact, hearing grossly intact and normal speech Routine Psychiatric Exam Psychiatric: Present normal affect, normal thought process and cooperative Wound Wound description lt. hip: Wound description: Well healed surgical incision. No erythema or drainage noted. Not tender to palpation. Discharge Plan Plan Patient Disposition: HOME (Self Care) Patient condition on transfer: Stable Care Plan Goals: You have been started on the following medications: -aspirin 81mg daily -atorvastatin 40mg daily -Macrobid 100mg twice daily x4 days Please continue taking all other medications as previously prescribed Please follow up with your PCP in 7-10 days Please return to ED if you develop new or worsening symptoms Prescriptions/Referrals Prescriptions/Med Rec: New lisinopril 40 mg tablet 40 mg PO QDAY 30 Days Qty: 30 0RF aspirin [Adult Aspirin Regimen] 81 mg tablet,delayed release (DR/EC) 81 mg PO QDAY 30 Days Qty: 30 0RF nitrofurantoin monohyd/m-cryst [Macrobid] 100 mg capsule 100 mg PO BID 4 Days Qty: 8 0RF Rx Instructions: must administer with a meal/food atorvastatin 40 mg tablet 40 mg PO QDAY 30 Days Qty: 30 0RF Referrals: No Primary/Family,Physician [Primary Care Provider] - Patient/Caregiver Discharge Instructions Discharge Activity: resume usual activities Education Materials: Foot and Ankle Exercises ..., ED TIA: Transient Ischemic Attack Print Language: Serbian Stand Alone Forms: [place] Award Info., Patient Portal Info Letter Discharge Order Discharge Orders: Discharge (Routine); Ordered 08/20/24 Ordered By: Shaji Sahu Quality Discharge Quality Measures VTE prophylaxis
--- NOTE | 2024-08-20 16:58 | PC.SS ---
Transport scheduled for patient via [facility]. [facility]. Bedside nurse notified of flower buncher or picker time. Single ride.
--- NOTE | 2024-08-20 16:59 | PC.SS ---
HORSE STUD MANAGER provided patient with weather appropriate clothing (shorts/shirt). Patient to discharge back to community. Patient declined custodial placement.
== END 2024-08-20 17:05 | disposition home or self-care (01) | DRG 47 ==
LOC: SERX 23:35 → SERHOLD 08-17 00:53 → S2SX 08-19 06:00
PROVIDERS: Student in an Organized Health Care Education/Training Program; Admitting Provider Internal Medicine; Emergency Provider Emergency Medicine; Visit Provider Internal Medicine
DX: G45.9 Transient cerebral ischemic attack, unspecified (principal); L03.116 Cellulitis of left lower limb; I10 Essential (primary) hypertension; E78.00 Pure hypercholesterolemia, unspecified; D64.89 Other specified anemias; R73.9 Hyperglycemia, unspecified; R80.9 Proteinuria, unspecified; Z96.642 Presence of left artificial hip joint; Z87.891 Personal history of nicotine dependence; F40.240 Claustrophobia; F41.0 Panic disorder [episodic paroxysmal anxiety]; G93.40 Encephalopathy, unspecified; Z53.20 Procedure and treatment not carried out because of patient's decision for unspecified reasons; Z59.00 Homelessness unspecified; Z79.899 Other long term (current) drug therapy; Z86.73 Personal history of transient ischemic attack (TIA), and cerebral infarction without residual deficits; M25.552 Pain in left hip; B95.61 Methicillin susceptible Staphylococcus aureus infection as the cause of diseases classified elsewhere; E86.0 Dehydration
CPT/HCPCS: 36415; 70450; 70496; 70498; 73610; 73630; 80053; 80061; 80307; 81001; 83605; 83690; 83735; 83880; 84100; 84145; 84443; 84484; 85025; 85610; 85730; 87040; 87077; 87081; 87086; 87186; 93005; 93225; 93306; 93970; 96365; 96367; 96372; 97161; 99285; A4649; J0360; J0689; J0696; J1644; J7030; Q9967; A9270